=== PATIENT | female | born 1950 | race Caucasian/White ===

== ENCOUNTER → 2017-04-22 14:27 | Outpatient (CLI) | payer MEDICAID, SELFPAY ==
[2017-04-22 15:43] LABS: Absolute Lymphocyte Count 3.36 X10^3/ul (0.83-4.51); Absolute Neutrophil Count 4.3 X10^3/uL (2.0-7.7); Basophil# 0.03 X10^3/uL; Basophil% 0.3 % (0-1); Eosinophils% 4.6 % (0-5); Hematocrit 38.7 % (37-47); Hemoglobin 12.1 g/dl (12.0-15.0); Lymphocyte # 3.36 X10^3/ul (4.0); Lymphocyte % 38.8 % (19-41); Mean Corp Hgb Conc 31.3 g/gl (32-36); Mean Corpuscular Hgb 27.4 pg (27.0-32.0); Mean Corpuscular Volume 87.6 fL (81-99); Mean Platelet Vol. 11.6 fl (6.2-12.0); Monocyte# 0.54 X10^3/uL; Monocyte% 6.2 % (0-10); Neutrophil # 4.31 X10^3/uL (2.7-7.7); Neutrophil % 49.8 % (47-70); Platelet Count 232 K/mm3 (150-450); RBC Distribution Width CV 16.5 % (11.6-14.6); RBC Distribution Width SD 52.4 fl (35.1-43.9); Red Blood Count 4.42 M/mm3 (4.2-5.4); White Blood Count 8.7 K/mm3 (4.4-11.0)
[2017-04-22 15:51] LABS: POSITIVE COUNT NO; POSITIVE DIFFERENTIAL NO; POSITIVE MORPHOLOGY NO
[2017-04-22 16:06] LABS: AST(SGOT) 43 U/L (15-37); Alanine Aminotransfer ALT/SGPT 29 U/L (13-56); Albumin, Serum 3.3 g/dL (3.2-5.0); Alkaline Phosphatase 67 U/L (45-117); Anion Gap 7 (5-15); BUN 25 mg/dL (7-18); BUN/Creat Ratio 16.7 RATIO (10-20); Calcium,Total 8.5 mg/dL (8.5-10.1); Chloride 103 mmol/L (98-107); EST Glomerular Filtration Rate 37 mL/min (>60); Est Glom Filt Rate - Afr Amer 44 mL/min (>60); Globulin 3.4 g/dL (2.2-4.2); Glucose 79 mg/dL (74-106); Potassium 3.9 mmol/L (3.5-5.1); Prealbumin 16.7 mg/dL (20.0-40.0); Protein, Total 6.7 g/dL (6.4-8.2); Sodium Level 142 mmol/L (136-145)
== END ==
PROVIDERS: Family Provider Family Medicine; PCP Family Medicine; Visit Provider Family Medicine
DX: E46 Unspecified protein-calorie malnutrition (principal); E11.9 Type 2 diabetes mellitus without complications; Z51.81 Encounter for therapeutic drug level monitoring; Z79.899 Other long term (current) drug therapy
CPT/HCPCS: 36415; 80053; 83036; 84134; 85025

== ENCOUNTER → 2017-10-28 14:48 | Outpatient (CLI) | payer MEDICAID, SELFPAY ==
[2017-10-28 17:35] LABS: Anion Gap 5 (5-15); BUN 32 mg/dL (7-18); BUN/Creat Ratio 22.7 RATIO (10-20); Calcium,Total 8.4 mg/dL (8.5-10.1); Chloride 99 mmol/L (98-107); Creatinine, Serum 1.41 mg/dL (0.55-1.02); EST Glomerular Filtration Rate 39 mL/min (>60); Est Glom Filt Rate - Afr Amer 48 mL/min (>60); Glucose 136 mg/dL (74-106); Potassium 4.6 mmol/L (3.5-5.1); Sodium Level 135 mmol/L (136-145)
[2017-10-28 18:18] LABS: BNP,B-Type NATRIURETIC PEPTIDE 271.7 pg/mL (0-100)
== END ==
PROVIDERS: Family Provider Family Medicine; PCP Family Medicine; Visit Provider Family Medicine
DX: R60.9 Edema, unspecified (principal); I50.9 Heart failure, unspecified
CPT/HCPCS: 36415; 80048; 83880

== ENCOUNTER → 2017-10-28 15:03 | Outpatient (CLI) | payer MEDICAID, SELFPAY ==
--- NOTE | 2017-10-28 15:06 | VDLE_ITS ---
Reason For Study: Pain, Swelling RIGHT LEFT GSV is normal. GSV is normal. CFV is compressible, spontaneous, phasic, CFV is compressible, spontaneous, phasic, competent and demonstrates normal competent, and demonstrates normal augmentation. augmentation. FV is compressible, spontaneous, phasic, FV is compressible, spontaneous, phasic, competent and demonstrates normal competent and demonstrates normal augmentation. augmentation. POP V is compressible, spontaneous, phasic, POP V is compressible, spontaneous, phasic, competent and demonstrates normal competent and demonstrates normal augmentation. augmentation. T/P Trunk is compressible. T/P Trunk is compressible. PTV is compressible. PTV is compressible. RT PerV is compressible. LT PerV is compressible. Rt SoleusV is dilated and non compressible consistent with acute DVT. Procedure Exam performed in department. A preliminary report was called and/or faxed to Dr. Coleman Pickett. Interpretation Summary Acute deep vein thrombosis is noted in the right soleus vein. The remainder of the right lower extremity deep venous system is patent and compressible. Deep veins of the left lower extremity are patent and compressible segmentally. There is no evidence of left lower extremity deep vein thrombosis. Valvular competence appears intact within the proximal deep venous systems bilaterally. The greater saphenous veins appear bilaterally patent and compressible segmentally. Ordering Physician: Roslyn Cee Referring Physician: Roslyn Cee Performed By: Emani Lazo, CARLOS, RVT
--- NOTE | 2017-10-28 16:07 | RAD_ITS ---
STUDY: X-RAY - LEFT KNEE REASON FOR EXAM: Female, 67 years old. Left knee pain TECHNIQUE: 4 view(s) of the knee. COMPARISON: None. FINDINGS: Status post left knee arthroplasty. No evidence of acute hardware failure or loosening. No fracture or dislocation. Small amount of soft tissue swelling. No significant joint effusion. RAD/Knee 4 or More Views IMPRESSION: As above Electronically Signed: Nathan Khalil DO at 11:59 EDT Tel , Service support ,
== END ==
PROVIDERS: Family Provider Family Medicine; PCP Family Medicine; Visit Provider Family Medicine
DX: R60.9 Edema, unspecified (principal); I50.9 Heart failure, unspecified; M25.562 Pain in left knee; M79.604 Pain in right leg; M79.605 Pain in left leg; M25.662 Stiffness of left knee, not elsewhere classified
CPT/HCPCS: 36415; 73564; 80048; 83880; 93970

== ENCOUNTER 2018-02-06 10:44 | Inpatient (IN) | payer MEDICAID, SELFPAY ==
[2018-02-06] VITALS (12 sets, daily range): BP systolic 109–216; BP diastolic 75–106; PULSE 80–94; RESP 16–20; TEMP 36.2–37.7; O2SAT 88–97; BMI 31.9; BMI 32.0; BMI 38.1
--- NOTE | 2018-02-06 11:09 | CT_ITS ---
STUDY: CT FACIAL BONES WITH CONTRAST REASON FOR EXAM: Female, 67 years old. Facial swelling RADIATION DOSAGE (If Supplied By Facility): CTDIvol = ( 29.38 ) mGy, DLP = ( 694.38 ) mGycm TECHNIQUE: The patient was scanned in a multi detector CT scanner. Transaxial imaging was performed following the intravenous administration of 75 ml of Isovue 370 contrast material. Sagittal and coronal images were reconstructed. Individualized dose optimization techniques were used for this CT. COMPARISON: None. FINDINGS: There is inflammatory induration of the facial superficial soft tissues bilaterally, lateral neck greater on the right, submandibular bilaterally, anterior neck, extending downward in the subcutaneous fat overlying the thoracic inlet. There is thickening of the overlying skin. There is thickening of the underlying platysma. The appearance suggest the presence of either diffuse edema, or cellulitis. Normal appearance of the thyroid, submandibular and parotid glands. Soft tissues deep to the platysma exhibit no significant inflammatory induration. There are multiple shotty lymph nodes of the cervical chains, bilateral supraclavicular, submandibular, not pathologically enlarged but somewhat conspicuous in number and possibly acute reactive lymphadenopathy. Pharyngeal and laryngeal soft tissues are unremarkable. Atherosclerosis of the carotid bulbs and bifurcations without stenosis. Patent vertebral arteries. Paranasal sinuses, mastoid air cells and middle ear cavities are clear. Evaluated portions of calvarium appear normal. There is multilevel cervical spondylosis with uncovertebral joint hypertrophy contributing to foraminal narrowing at C3-C4. 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 Acutely, patent features of the cranial vasculature. CT/Sinus/Facial Bone WITH Contras IMPRESSION: Superficial soft tissue edema/induration involving the face, neck, and subcutaneous fat of the upper chest, associated with multiple small reactive appearing lymph nodes of the cervical chains and supraclavicular, in a pattern favoring a generalized cellulitis. The process extends upward to the periorbital soft tissues without intraorbital extension. There is no evidence of abscess. No focal nidus of infection is identified. Electronically Signed: Clyde Davies MD at 14:49 EST Tel , Service support ,
[2018-02-06 11:41] LABS: Absolute Lymphocyte Count 1.79 X10^3/ul (0.83-4.51); Absolute Neutrophil Count 7.3 X10^3/uL (2.0-7.7); Basophil# 0.02 X10^3/uL; Basophil% 0.2 % (0-1); Eosinophil# 0.25 X10^3/uL; Eosinophils% 2.4 % (0-5); Hematocrit 29.3 % (37-47); Hemoglobin 8.9 g/dl (12.0-15.0); Lymphocyte # 1.79 X10^3/ul (4.0); Lymphocyte % 17.5 % (19-41); Mean Corp Hgb Conc 30.4 g/gl (32-36); Mean Corpuscular Hgb 23.1 pg (27.0-32.0); Mean Corpuscular Volume 76.1 fL (81-99); Mean Platelet Vol. 9.5 fl (6.2-12.0); Monocyte# 0.83 X10^3/uL; Monocyte% 8.1 % (0-10); Neutrophil # 7.31 X10^3/uL (2.7-7.7); Neutrophil % 71.5 % (47-70); Platelet Count 262 K/mm3 (150-450); RBC Distribution Width CV 16.6 % (11.6-14.6); Red Blood Count 3.85 M/mm3 (4.2-5.4); White Blood Count 10.2 K/mm3 (4.4-11.0)
[2018-02-06 11:42] LABS: Differential Indicated SCAN CRITERIA MET; POSITIVE COUNT NO; POSITIVE DIFFERENTIAL NO; POSITIVE MORPHOLOGY YES
[2018-02-06] MEDS: MethylPREDNISolone 125 MG/2 ML Vial IV (11:42)
[2018-02-06] MEDS: DiphenhydrAMINE 50 MG/ML Syringe 25 MG IV (11:42)
[2018-02-06 11:51] LABS: International Normalized Ratio 2.2; Prothrombin Time (Protime)PT. 24.3 SECONDS (11.7-14.9)
[2018-02-06 11:52] LABS: Partial Thromboplast Time 46.8 Seconds (24.1-36.2)
[2018-02-06 11:54] LABS: BUN 34 mg/dL (7-18); Creatinine, Serum 1.29 mg/dL (0.55-1.02); EST Glomerular Filtration Rate 43 mL/min (>60); Estimated Creatinine Clearance 31.06 ml/min; Glucose 116 mg/dL (74-106)
[2018-02-06 11:55] LABS: ALB/GLOB Ratio 0.9 RATIO (0.9-2.4); AST(SGOT) 25 U/L (15-37); Alanine Aminotransfer ALT/SGPT 25 U/L (13-56); Albumin, Serum 3.2 g/dL (3.2-5.0); Alkaline Phosphatase 64 U/L (45-117); Anion Gap 7 (5-15); BUN/Creat Ratio 26.4 RATIO (10-20); Calcium,Total 8.3 mg/dL (8.5-10.1); Chloride 101 mmol/L (98-107); Est Glom Filt Rate - Afr Amer 53 mL/min (>60); Globulin 3.4 g/dL (2.2-4.2); Protein, Total 6.6 g/dL (6.4-8.2); Sodium Level 137 mmol/L (136-145)
--- NOTE | 2018-02-06 15:10 | ED.DCSUM_ITS ---
- ER Visit Summary Date of Service: 02/06/18 Chief Complaint: Facial swelling History of Present Illness: The patient is a 67 F with facial swelling. It started about a week ago when she got bit in her right ear. She had facial swelling since then. Over the last couple days, she has had redness and warmth. No fevers. No trouble breathing, talking, or swallowing. No history of anaphylaxis. Physical Examination: Afebrile and vital signs unremarkable except for a blood pressure 216/106. Afebrile. Marked facial edema and erythema, worse on the right side. Eyes are nearly swollen shut. No focal fluctuance. No definite lesion or skin break. HEENT exam otherwise unremarkable. Airway intact. Heart regular. Lungs clear. Test Results: Hemoglobin 8.9, BUN 34, creatinine 1.29, INR 2.2. Cultures pending. CT showed soft tissue edema concerning for cellulitis. No focal abscess. Emergency Department Course and Treatment: Patient was treated with Benadryl and Solu-Medrol. INR is elevated. She is on aspirin and Xarelto. CT showed findings consistent with cellulitis. No focal abscess. She was treated with clindamycin and discussed with the hospitalist for admission. Treatment Plan: As above Disposition: Admission Impression: Facial cellulitis This note was generated with [employer] dictation software. It may contain incorrect words, spelling, and punctuation that were not noted in review of the chart prior to signing ED Disposition - Plan for ED Patient: Chief Complaint: Edema Referrals: Roslyn Cee DO [Primary Care Provider] -
--- NOTE | 2018-02-06 15:11 | NURSING ---
MED SURG ASHELFAH FACIAL CELLULITIS
--- NOTE | 2018-02-06 15:34 | HP.PCM_ITS ---
Problem List (1) JAIME (obstructive sleep apnea) Status: Chronic (2) Diabetes mellitus type 2 in obese Status: Chronic (3) Chronic renal failure, stage 3 (moderate) Status: Chronic (4) HLD (hyperlipidemia) Status: Chronic (5) HTN (hypertension) Status: Chronic (6) Hypothyroidism Status: Chronic (7) COPD (chronic obstructive pulmonary disease) Status: Chronic Qualifiers: (8) Gastric bypass status for obesity Status: Chronic History of Present Illness Date of Admission: 02/06/18 Chief Complaint: Facial swelling. The patient is a 67 year old F with past medical history as mentioned above presented to the emergency department because of swelling and redness of the face that started around 1 week ago. Patient stated that she had some insect bite in the right earlobe and shortly after, she started having swelling and redness of the face, first started around her right side of her face, progressed to around both eyes as well as in the left side and chin area, associated with significant redness and erythema and without aggravating or relieving factors. She mentioned that yesterday, the swelling and erythema was worse than today and her eyes were almost closed. She denied fever or chills. She denied difficulty breathing or difficulty swallowing. She denies sore throat. In the emergency department, she was afebrile, blood pressure was stable, pulse ox was 97% on 2 L. Her routine blood work was remarkable for hemoglobin of 8.9 g/dL, BUN of 34 and creatinine of 1.29. Her LFT was normal. CT scan of the facial bones and sinuses revealed superficial soft tissue edema of the face, neck and subcutaneous fat of the upper chest with multiple small reactive lymph nodes, no abscess. She is being admitted for acute probably bacterial facial cellulitis for treatment. Past Medical History Past Medical History (Chronic Problems): Chronic Problems JAIME (obstructive sleep apnea) (Chronic) Esophageal stricture (Chronic) Diabetes mellitus type 2 in obese (Chronic) Diverticulosis (Chronic) Chronic renal failure, stage 3 (moderate) (Chronic) HLD (hyperlipidemia) (Chronic) HTN (hypertension) (Chronic) Morbid obesity (Chronic) Nicotine dependence (Chronic) History of vertebral compression fracture (Chronic) L1 and L2, April 2016 Hypothyroidism (Chronic) COPD (chronic obstructive pulmonary disease) (Chronic) Lumbar canal stenosis (Chronic) Gastric bypass status for obesity (Chronic) Allergies morphine Allergy (Verified 02/06/18 10:47) Anaphylaxis oxycodone Allergy (Verified 02/06/18 10:47) Swelling oxycodone HCl [From OxyContin] Allergy (Verified 02/06/18 10:47) Swelling temazepam [From Restoril] Allergy (Verified 02/06/18 10:47) Anaphylaxis adhesive tape Adverse Reaction (Verified 02/06/18 10:47) Other SKIN PEELS OFF WITH USE Home Medications: Ambulatory Orders Medication Instructions Recorded Albuterol Inhaler [Ventolin Hfa] 1 puff INHALATION Q4H PRN PRN 07/08/16 Atorvastatin Calcium 40 mg PO BID 07/08/16 Furosemide 40 mg PO TID 07/08/16 Lisinopril [Zestril] 10 mg PO DAILY 07/08/16 Carvedilol [Coreg] 3.125 mg PO BID 07/12/16 Fluticasone Propionate [24 Hour 1 - 2 sprays NS DAILY PRN 07/12/16 Allergy Relief] Insulin Glargine,Hum.rec.anlog 13 unit SQ QHS 07/12/16 [Basaglar Kwikpen U-100] Insulin Lispro [Humalog KwikPen] See Protocol SQ DAILY 07/12/16 Ipratropium [Atrovent Inhaler] 1 puff INHALATION 4X/DAY PRN 07/12/16 Ondansetron [Zofran Odt] 4 mg PO 4X/DAY PRN PRN 07/12/16 Ferrous Sulfate 325 mg PO DAILY #0 07/14/16 Magnesium Oxide [Mag-Ox 400] 400 mg PO DAILY #30 tablet 07/14/16 ALPRAZolam [Xanax] 0.5 mg PO BID 02/06/18 Albuterol Aerosols [Ventolin 2.5 mg INHALATION Q6H PRN PRN 02/06/18 Aerosols] Aspirin E.C. [Ecotrin] 81 mg PO DAILY@0800 02/06/18 Cholecalciferol (Vitamin D3) 5,000 unit PO DAILY 02/06/18 [Vitamin D3] Clindamycin Phosphate 1 applicatio TP PRN PRN 02/06/18 Erythromycin Base [Erythromycin] 1 applic EACH EYE QHS 02/06/18 Eye Relief 1 drop EACH EYE DAILY 02/06/18 Fluorometholone 1 drop EACH EYE BID 02/06/18 Fluticasone/Salmeterol [Advair 1 puff INHALATION BID 02/06/18 250-50 Diskus] Hydrocodone/Acetaminophen 1 tab PO Q6H PRN PRN 02/06/18 [Hydrocodon-Acetaminophn 10-325] Ibuprofen 800 mg PO BID 02/06/18 Levothyroxine Sodium [Synthroid] 75 mcg PO DAILY 02/06/18 Metformin HCl 500 mg PO BID 02/06/18 Omeprazole 40 mg PO BID 02/06/18 Oxybutynin Chloride [Ditropan Xl] 10 mg PO DAILY 02/06/18 Oxybutynin Chloride [Ditropan Xl] 20 mg PO DAILY 02/06/18 Rivaroxaban [Xarelto] 20 mg PO DAILY 02/06/18 traMADol [Ultram] 50 mg PO TID 02/06/18 Surgical History: total knee arthroplasty, - - left knee replaced, right ankle surgery.gastric bypass Psychiatric History: No pertinent psych hx 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 history Lives: Spouse/ Significant Other Smoking Status: Current every day smoker Tobacco Use: Cigarettes Alcohol: None Drugs: None - *Family History Maternal History Items: Diabetes Paternal History Items: Hypertension Review of Systems Constitutional: Denies: Anorexia, Chills, Fever, Weakness Eyes: Denies: Blurred vision, Double vision, Drainage, Redness HEENT: Denies: Difficulty Hearing, Difficulty Swallowing, Ear Pain, Eye Pain, Nasal bleeding, Nasal Congestion, Sore Throat Cardiovascular: Denies: Chest Pain, Chest Pressure, Chest Tightness, Heaviness, Light Headedness, Palpitations, Syncope Respiratory: Denies: Cough, Pleuritic Pain, Shortness of Breath, Sputum production, Wheezing Gastrointestinal: Denies: Abdominal Pain, Constipation, Diarrhea, Nausea, Vomiting Genitourinary: Denies: Dysuria, Frequency, Hematuria Musculoskeletal: Denies: Arm Pain, Back Pain, Foot Pain Skin: Denies: Dryness, Rash Neurological: Denies: Balance problems, Double vision, Change in Speech, Slurred speech, Confusion, Focal weakness, Headaches Psychiatric: Reports: Anxiety. Denies: Depression Endocrine: Denies: Change in Body Habitus, Polydipsia VTE Information - Inpt Only VTE Present on Admission: No VTE Mechan Device Prophylaxis: None VTE Pharm Prophylaxis ordered?: No - Physical Exam General: Alert, Oriented x3, Cooperative, No apparent distress HEENT: Atraumatic, PERRLA, EOMI, Normocephalic, - - Facial swelling and erythema involving the whole face, more marked on the right cheek, around both eyes as well as right earlobe. Erythema and swelling is less prominent on the left cheek, left periorbital area and neck. Oral: Moist Mucosa, No Gingival or Mucosal Lesions/ Ulcerations Neck: Supple, No JVD, Negative Carotid Bruits, Trachea Midline, Thyroid Normal Size and Texture Lungs: Clear to auscultation, No rhonchi, No wheeze, No rales, Diminished Cardiovascular: Regular rate, Regular Rhythm, Normal S1, Normal S2, PMI Normal Abdomen: Bowel Sounds Present, Soft, Non Tender, Non-Distended, No Hepato- splenomegaly, Obese Extremities: No clubbing, No cyanosis, Edema - Trace edema. Skin: No breakdown, Rash Present Lymphatic: No Cervical, Supraclavicular, or Inguinal Adenopathy Neurological: Cranial nerves II-XII grossly intact, Motor Exam 5/5 strength throughout Psych/Mental Status: Normal Affect, Appropriate, Alert and oriented to time, place, person, mood and affect Vital Signs Temp Pulse Resp BP Pulse Ox 98.2 F 87 20 H 165/88 H 94 02/06/18 15:00 02/06/18 15:00 02/06/18 15:00 02/06/18 15:00 02/06/18 15:00 Oxygen Flow Rate (L/min) 2 Oxygen Delivery Method Nasal Cannula Weight: 172 lb Body Mass Index (BMI) 31.9 Laboratory Tests Past 24 Hrs 02/06/18 02/06/18 02/06/18 11:30 11:30 11:30 WBC 10.2 RBC 3.85 L Hgb 8.9 L Hct 29.3 L MCV 76.1 L MCH 23.1 L MCHC 30.4 L RDW 16.6 H RDW Differential 46.0 H Plt Count 262 MPV 9.5 Immature Gran % (Auto) 0.300 Neut % (Auto) 71.5 H Lymph % (Auto) 17.5 L [place] % (Auto) 8.1 Eos % (Auto) 2.4 Baso % (Auto) 0.2 Absolute Neuts (auto) 7.3 Absolute Lymphs (auto) 1.79 Total Counted Not Reportable PT 24.3 H INR 2.2 APTT 46.8 H Sodium 137 Potassium 4.0 Chloride 101 Carbon Dioxide 29.0 Anion Gap 7 BUN 34 H Creatinine 1.29 H Estim Creat Clear Calc 31.06 Est GFR (MDRD) Af Amer 53 L Est GFR (MDRD) Non-Af 43 L BUN/Creatinine Ratio 26.4 H Glucose 116 H Calcium 8.3 L Total Bilirubin 0.40 AST 25 ALT 25 Alkaline Phosphatase 64 Total Protein 6.6 Albumin 3.2 Globulin 3.4 Albumin/Globulin Ratio 0.9 Clinical Impression(s) from Imaging Studies Facial/Sinus 02/06/18 11:09 IMPRESSION: Superficial soft tissue edema/induration involving the face, neck, and subcutaneous fat of the upper chest, associated with multiple small reactive appearing lymph nodes of the cervical chains and supraclavicular, in a pattern favoring a generalized cellulitis. The process extends upward to the periorbital soft tissues without intraorbital extension. There is no evidence of abscess. No focal nidus of infection is identified. Electronically Signed: Clyde Davies MD at 14:49 EST Tel , Service support , Assessment/Plan This is a 67 years old female patient presented to the emergency because of facial swelling and erythema, found to have acute facial cellulitis and she is being admitted for treatment. Also, she was found to have acute on chronic anemia. #1 acute probably bacterial facial cellulitis: Face is swollen, erythematous, no open wounds or drainage. CT scan sinuses and facial bones reviewed. She is afebrile, no leukocytosis. No evidence of sepsis or sepsis. Plan: Admit to [facility] floor, blood culture, IV clindamycin, MRSA nasal swab, Tylenol as needed, Zofran as needed, repeat CBC and BMP tomorrow morning. #2 acute on chronic anemia: Her baseline hemoglobin has been around 11 g/dL. Most recently, it was 12.1 g/dL. Admission hemoglobin is 8.9 g/dL, it is microcytic anemia. Patient denied any bleeding from body orifices. Her INR is 2.2, unclear etiology. Patient has been on Xarelto for DVT. Plan: Stool for occult blood, serum iron, ferritin, TIBC, transferrin, continue iron supplement. #3 recent diagnosis of acute DVT of the right soleus vein: She had venous Doppler on October 28, 2017 that revealed acute DVT of the right soleus vein. She has been on Xarelto since then. Plan to continue Xarelto. #4 stage III chronic kidney disease: Baseline creatinine has been around 1.3-1.6 mg/dL. Admission creatinine is 1.29, stable at baseline. #5 type 2 diabetes mellitus: ADA diet, Accu-Cheks, insulin sliding scale, continue metformin and home doses of glargine insulin. #6 COPD: DuoNeb every 6 hours, albuterol as needed, incentive spirometer. #7 hypertension: Blood pressure stable, continue Coreg, Lasix and lisinopril. #8 DVT prophylaxis: Continue Xarelto. Other chronic medical problems: Stable, continue home medications. #1 hypothyroidism. #2 hyperlipidemia. #3 lumbar canal stenosis. #4 obstructive sleep apnea. This note was generated with [employer] dictation software. It may contain incorrect words, spelling, and punctuation that were not noted in checking the note before signing. Code Visit Inpatient E&M: 97022 Init Hosp L2
[2018-02-06] MEDS: Acetaminophen 325 MG Tablet 650 MG PO (18:15)
[2018-02-06] MEDS: Glucerna Shake 120 ML LIQUID PO ×2 (18:15→21:57)
[2018-02-06 18:16] LABS: Bedside Glucose 192 mg/dL (70-110)
[2018-02-06] MEDS: Insulin Lispro 100 UNIT/ML INSULN.PEN SC ×2 (18:16→21:47)
[2018-02-06 18:58] LABS: Ferritin 15 ng/mL (8-252); Iron 10 ug/dL (50-170); Iron Binding Capacity,Total 308 ug/dL (250-450); PERCENT IRON SATURATION 3.2 % (15.0-55.0)
[2018-02-06] MEDS: Ipratropium/Albuterol Sulfate 3 ML AMPUL.NEB INHALATION (19:39)
[2018-02-06] MEDS: Carvedilol 3.125 MG TABLET PO (21:50)
[2018-02-06] MEDS: Furosemide 40 MG Tablet PO (21:50)
[2018-02-06] MEDS: Pantoprazole Sodium 40 MG Tablet PO (21:51)
[2018-02-06] MEDS: Atorvastatin Calcium 40 MG Tablet PO (21:51)
[2018-02-06] MEDS: traMADol 50 MG Tablet PO (21:54)
[2018-02-06] MEDS: ALPRAZolam 0.5 MG Tablet PO (21:55)
[2018-02-06 22:26] LABS: Bedside Glucose 239 mg/dL (70-110)
[2018-02-07] VITALS (16 sets, daily range): BP systolic 128–161; BP diastolic 65–92; PULSE 75–96; RESP 18–22; TEMP 36.7–36.9; O2SAT 84–97
[2018-02-07] MEDS: HYDROcodone Bitartrate/Apap 5/325 Tablet PO ×3 (04:03→18:55)
[2018-02-07] MEDS: traMADol 50 MG Tablet PO ×3 (05:38→21:47)
[2018-02-07] MEDS: Levothyroxine 75 MCG Tablet PO (05:38)
[2018-02-07] MEDS: Furosemide 40 MG Tablet PO ×3 (05:38→21:47)
[2018-02-07 05:59] LABS: Absolute Lymphocyte Count 1.35 X10^3/ul (0.83-4.51); Absolute Neutrophil Count 8.4 X10^3/uL (2.0-7.7); Basophil# 0.02 X10^3/uL; Basophil% 0.2 % (0-1); Hematocrit 29.9 % (37-47); Hemoglobin 9.2 g/dl (12.0-15.0); Lymphocyte # 1.35 X10^3/ul (4.0); Mean Corp Hgb Conc 30.8 g/gl (32-36); Mean Corpuscular Volume 74.8 fL (81-99); Mean Platelet Vol. 11.1 fl (6.2-12.0); Monocyte# 0.59 X10^3/uL; Monocyte% 5.7 % (0-10); Neutrophil # 8.42 X10^3/uL (2.7-7.7); Neutrophil % 80.8 % (47-70); Platelet Count 303 K/mm3 (150-450); RBC Distribution Width CV 16.8 % (11.6-14.6); RBC Distribution Width SD 44.1 fl (35.1-43.9); White Blood Count 10.4 K/mm3 (4.4-11.0)
[2018-02-07 06:08] LABS: Anion Gap 8 (5-15); BUN 29 mg/dL (7-18); BUN/Creat Ratio 25.2 RATIO (10-20); Calcium,Total 8.4 mg/dL (8.5-10.1); Chloride 104 mmol/L (98-107); Creatinine, Serum 1.15 mg/dL (0.55-1.02); EST Glomerular Filtration Rate 50 mL/min (>60); Est Glom Filt Rate - Afr Amer 60 mL/min (>60); Estimated Creatinine Clearance 34.84 ml/min; Glucose 183 mg/dL (74-106); Potassium 4.2 mmol/L (3.5-5.1); Sodium Level 141 mmol/L (136-145)
[2018-02-07 06:11] LABS: Differential Indicated SCAN CRITERIA MET; POSITIVE COUNT NO; POSITIVE DIFFERENTIAL NO; POSITIVE MORPHOLOGY YES
[2018-02-07 06:36] LABS: Differential Comment SCAN
[2018-02-07 06:37] LABS: Anisocytosis 1+; Hypochromasia 1+; Microcytosis 1+
[2018-02-07] MEDS: Ipratropium/Albuterol Sulfate 3 ML AMPUL.NEB INHALATION ×3 (06:52→19:02)
[2018-02-07] MEDS: Insulin Lispro 100 UNIT/ML INSULN.PEN SC ×4 (07:00→21:46)
[2018-02-07 07:10] LABS: Bedside Glucose 179 mg/dL (70-110)
[2018-02-07] MEDS: Tolterodine Tartrate 4 MG CAP.SA PO (08:37)
[2018-02-07] MEDS: Pantoprazole Sodium 40 MG Tablet PO ×2 (08:37→21:49)
[2018-02-07] MEDS: Lisinopril 10 MG Tablet PO (08:37)
[2018-02-07] MEDS: Aspirin E.C. 81 MG Tablet PO (08:37)
[2018-02-07] MEDS: Carvedilol 3.125 MG TABLET PO ×2 (08:37→21:49)
[2018-02-07] MEDS: Ferrous Sulfate 325 MG Tablet PO (08:37)
[2018-02-07] MEDS: Atorvastatin Calcium 40 MG Tablet PO ×2 (08:37→21:49)
[2018-02-07] MEDS: Glucerna Shake 120 ML LIQUID PO ×2 (08:38→12:24)
[2018-02-07] MEDS: Magnesium Oxide 400 MG Tablet PO (08:38)
[2018-02-07] MEDS: FLUOROMETHOLONE 1 DROP BOTTLE 1 DRP EACHEYE ×2 (08:41→21:51)
[2018-02-07] MEDS: ALPRAZolam 0.5 MG Tablet PO ×2 (10:28→21:47)
[2018-02-07] MEDS: Nystatin Powder 15gm Bottle 1 APPLIC TOPICAL ×2 (10:29→21:49)
[2018-02-07 11:35] LABS: Bedside Glucose 170 mg/dL (70-110)
[2018-02-07] MEDS: DiphenhydrAMINE 25 MG Capsule PO (12:21)
--- NOTE | 2018-02-07 13:40 | CASEMGMT ---
[facility] Face to Face with patient for initial transition planning/care coordination assessment. RN JESUSITA introduced self and role at [facility]. Patient lying in bed, alert and oriented. Patient willing to participate in assessment and is able to answer all questions appropriately. Care providers, pharmacy, and demographics verified. Patient wishes to discharge home and will follow up with adult protective caseworker at [facility]. Patient states she has no further needs or concerns at this time. CM to follow for discharge planning needs that may arise. PCP: Coleman Specialists: None Preferred Pharmacy: [facility] Insurance: [facility] Prescription Benefit: [facility] Living Will/HPOA: Yes mother Madison Montesinos LNOK: Mother, ex Living Arrangements: Patient lives in 2 story house with ex who stays on 2nd floor. Patient stays on 1st floor. Transportation: Mother, ex DME/HHC: Patient states she has everything setup at home. Walker, scooter, cane, raised toilet, shower chair, hospital bed, medical alert. States she has HHC through [facility] when she needs it and patient will call [facility] when she discharges. Denied further needs. Disposition Plan: Patient to discharge home with family support and follow-up plans in place. Marcy AN, RN, CM
[2018-02-07] MEDS: predniSONE 20 MG Tablet 40 MG PO (14:13)
--- NOTE | 2018-02-07 15:03 | PN_ITS ---
<Sherman Bee - Last Filed: 02/07/18 14:57> Subjective: Pt reports ongoing pain and swelling of her face R>L. She does not feel that it has improved. It began 6 days ago when, what she thinks - but is not sure, a horsefly flew out of a drawer and stung her right ear. She had swelling and pain that day. She has been on some topicals with no improvement. She does have allergies to bug bites - she is not sure what bugs but she carries an epi pen for it. She did not use it when this happened. She has COPD and is chronically on O2. No Wheezing or SOB currently. No new cough. She has a hard time opening her eyes due to the swelling but the vision is not blurred. No drainage. - Physical Exam General: Alert, Oriented x3, Cooperative HEENT: Atraumatic, PERRLA, EOMI, Normocephalic, - - Swelling and erythema of both sides around the eyes, worse on the right. Somewhat warm to the touch, no open areas or drainage. She cannot open her eyes all the way due to the swelling. Neck: Supple, No JVD, Negative Carotid Bruits Lungs: Clear to auscultation, Normal air movement Cardiovascular: Regular rate, No murmurs Abdomen: Bowel Sounds Present, Soft, Non Tender Extremities: No edema, Capillary Refill Less than 3 Seconds Skin: No rashes, No breakdown Musculoskeletal: No Tenderness to Palpation of Joints or Extremities Neurological: Cranial nerves II-XII grossly intact Psych/Mental Status: Normal Affect, Appropriate, Alert and oriented to time, place, person, mood and affect Vital Signs Temp Pulse Resp BP Pulse Ox 98.2 F 81 18 128/92 H 97 02/07/18 13:46 02/07/18 13:46 02/07/18 13:46 02/07/18 13:46 02/07/18 13:46 Oxygen Flow Rate (L/min) 3 Oxygen Delivery Method Nasal Cannula Weight: 205 lb 4.006 oz Body Mass Index (BMI) 38.1 Intake and Output for Last 24 Hours 02/05/18 02/06/18 02/07/18 23:59 23:59 23:59 Intake Total 893 / 893 Balance 893 / 893 Laboratory Tests Past 24 Hrs 02/06/18 02/06/18 02/07/18 11:30 11:30 05:14 WBC RBC Hgb Hct MCV MCH MCHC RDW RDW Differential Plt Count MPV Immature Gran % (Auto) Neut % (Auto) Lymph % (Auto) [place] % (Auto) Eos % (Auto) Baso % (Auto) Absolute Neuts (auto) Absolute Lymphs (auto) Total Counted Differential Comment Hypochromasia Anisocytosis Microcytosis Sodium 141 Potassium 4.2 Chloride 104 Carbon Dioxide 29.0 Anion Gap 8 BUN 29 H Creatinine 1.15 H Estim Creat Clear Calc 34.84 Est GFR (MDRD) Af Amer 60 Est GFR (MDRD) Non-Af 50 L BUN/Creatinine Ratio 25.2 H Glucose 183 H Calcium 8.4 L Iron 10 L TIBC 308 Iron Saturation 3.2 L Transferrin Pending Ferritin 15 02/07/18 05:14 WBC 10.4 RBC 4.00 L Hgb 9.2 L Hct 29.9 L MCV 74.8 L MCH 23.0 L MCHC 30.8 L RDW 16.8 H RDW Differential 44.1 H Plt Count 303 MPV 11.1 Immature Gran % (Auto) 0.300 Neut % (Auto) 80.8 H Lymph % (Auto) 13.0 L [place] % (Auto) 5.7 Eos % (Auto) 0.0 Baso % (Auto) 0.2 Absolute Neuts (auto) 8.4 H Absolute Lymphs (auto) 1.35 Total Counted Not Reportable Differential Comment SCAN Hypochromasia 1+ Anisocytosis 1+ Microcytosis 1+ Sodium Potassium Chloride Carbon Dioxide Anion Gap BUN Creatinine Estim Creat Clear Calc Est GFR (MDRD) Af Amer Est GFR (MDRD) Non-Af BUN/Creatinine Ratio Glucose Calcium Iron TIBC Iron Saturation Transferrin Ferritin POC Glucose 02/07/18 02/07/18 02/06/18 11:26 06:59 21:39 POC Glucose 170 H 179 H 239 H 02/06/18 18:11 POC Glucose 192 H Medical Necessity - Tobacco Use Smoking Status: Current every day smoker Tobacco Use: Cigarettes Assessment/Plan 1. Facial swelling - cellulitis vs allergic rxn. Added steroids and benadryl. Continue clinda. If no improvement change abx. No drainage. Started with insect bite and she carries an epi pen for insect bites - however she is not sure what exactly she is allergic to. 2. Acute on chronic anemia - iron deficient. Improved. Continue PO iron. 3. Recent hx of DVT - xarelto 4. Stage III CKD - improved. 5. T2DM - continue current therapy. Will fluctuate with steroids. 6. COPD - stable. no SOB. Clear lungs. DVT ppx: xarelto. DC planning: monitor for improvement. This patient was seen by Sherman Bee PA-C under the supervision of Doctor Anette. <Raad Cheema F - Last Filed: 02/07/18 16:16> - Physical Exam Vital Signs Temp Pulse Resp BP Pulse Ox 98.2 F 81 18 128/92 H 97 02/07/18 13:46 02/07/18 13:46 02/07/18 13:46 02/07/18 13:46 02/07/18 13:46 Oxygen Flow Rate (L/min) 3 Oxygen Delivery Method Nasal Cannula Weight: 205 lb 4.006 oz Body Mass Index (BMI) 38.1 Intake and Output for Last 24 Hours 02/05/18 02/06/18 02/07/18 23:59 23:59 23:59 Intake Total 893 / 893 Balance 893 / 893 Laboratory Tests Past 24 Hrs 02/06/18 02/06/18 02/07/18 11:30 11:30 05:14 WBC RBC Hgb Hct MCV MCH MCHC RDW RDW Differential Plt Count MPV Immature Gran % (Auto) Neut % (Auto) Lymph % (Auto) [place] % (Auto) Eos % (Auto) Baso % (Auto) Absolute Neuts (auto) Absolute Lymphs (auto) Total Counted Differential Comment Hypochromasia Anisocytosis Microcytosis Sodium 141 Potassium 4.2 Chloride 104 Carbon Dioxide 29.0 Anion Gap 8 BUN 29 H Creatinine 1.15 H Estim Creat Clear Calc 34.84 Est GFR (MDRD) Af Amer 60 Est GFR (MDRD) Non-Af 50 L BUN/Creatinine Ratio 25.2 H Glucose 183 H Calcium 8.4 L Iron 10 L TIBC 308 Iron Saturation 3.2 L Transferrin Pending Ferritin 15 02/07/18 05:14 WBC 10.4 RBC 4.00 L Hgb 9.2 L Hct 29.9 L MCV 74.8 L MCH 23.0 L MCHC 30.8 L RDW 16.8 H RDW Differential 44.1 H Plt Count 303 MPV 11.1 Immature Gran % (Auto) 0.300 Neut % (Auto) 80.8 H Lymph % (Auto) 13.0 L [place] % (Auto) 5.7 Eos % (Auto) 0.0 Baso % (Auto) 0.2 Absolute Neuts (auto) 8.4 H Absolute Lymphs (auto) 1.35 Total Counted Not Reportable Differential Comment SCAN Hypochromasia 1+ Anisocytosis 1+ Microcytosis 1+ Sodium Potassium Chloride Carbon Dioxide Anion Gap BUN Creatinine Estim Creat Clear Calc Est GFR (MDRD) Af Amer Est GFR (MDRD) Non-Af BUN/Creatinine Ratio Glucose Calcium Iron TIBC Iron Saturation Transferrin Ferritin POC Glucose 02/07/18 02/07/18 02/06/18 11:26 06:59 21:39 POC Glucose 170 H 179 H 239 H 02/06/18 18:11 POC Glucose 192 H Assessment/Plan Addendum: Dr. Cheema I personally examined the patient and reviewed the chart. I agree with the above. 67-year-old female with a one-week history of a reaction to a bite on the right side of her face. She presented with redness and swelling. She is afebrile and does not have a leukocytosis. Per history she has been on a couple different antibiotics as an outpatient is currently on IV clindamycin. Culture so far negative. CT scan was unremarkable for anything other than subcutaneous edema. Will add steroids and Benadryl in case this is also an allergic reaction given the fact that she states that she carries an EpiPen for an allergy see she has 2 insect so she is not sure which kind. Code Visit Inpatient E&M: 60628 Subs Hosp L2
[2018-02-07] MEDS: Rivaroxaban 20 MG Tablet PO (16:46)
[2018-02-07 16:56] LABS: Bedside Glucose 230 mg/dL (70-110)
[2018-02-07 22:01] LABS: Bedside Glucose 270 mg/dL (70-110)
[2018-02-08 03:15] VITALS: BP 108/81; PULSE 74; RESP 18; TEMP 36.8; O2SAT 94
[2018-02-08] MEDS: HYDROcodone Bitartrate/Apap 5/325 Tablet PO (03:32)
[2018-02-08 04:00] VITALS: PULSE 81
[2018-02-08] MEDS: Furosemide 40 MG Tablet PO (06:36)
[2018-02-08] MEDS: Levothyroxine 75 MCG Tablet PO (06:36)
[2018-02-08] MEDS: traMADol 50 MG Tablet PO (06:36)
[2018-02-08 06:39] LABS: Absolute Lymphocyte Count 1.36 X10^3/ul (0.83-4.51); Absolute Neutrophil Count 8.1 X10^3/uL (2.0-7.7); Basophil# 0.01 X10^3/uL; Basophil% 0.1 % (0-1); Hematocrit 25.9 % (37-47); Lymphocyte # 1.36 X10^3/ul (4.0); Lymphocyte % 13.6 % (19-41); Mean Corp Hgb Conc 30.9 g/gl (32-36); Mean Corpuscular Volume 74.4 fL (81-99); Mean Platelet Vol. 10.3 fl (6.2-12.0); Monocyte# 0.45 X10^3/uL; Monocyte% 4.5 % (0-10); Neutrophil # 8.14 X10^3/uL (2.7-7.7); Neutrophil % 81.4 % (47-70); Platelet Count 286 K/mm3 (150-450); Red Blood Count 3.48 M/mm3 (4.2-5.4)
[2018-02-08] MEDS: Insulin Lispro 100 UNIT/ML INSULN.PEN SC ×2 (06:41→11:10)
[2018-02-08 06:45] LABS: Differential Indicated SCAN CRITERIA MET; POSITIVE COUNT NO; POSITIVE DIFFERENTIAL NO; POSITIVE MORPHOLOGY YES
[2018-02-08 06:51] LABS: Bedside Glucose 187 mg/dL (70-110)
[2018-02-08 06:57] LABS: Anion Gap 5 (5-15); BUN 31 mg/dL (7-18); BUN/Creat Ratio 23.5 RATIO (10-20); Chloride 100 mmol/L (98-107); Creatinine, Serum 1.32 mg/dL (0.55-1.02); EST Glomerular Filtration Rate 42 mL/min (>60); Est Glom Filt Rate - Afr Amer 51 mL/min (>60); Estimated Creatinine Clearance 30.35 ml/min; Glucose 191 mg/dL (74-106); Potassium 4.5 mmol/L (3.5-5.1); Sodium Level 137 mmol/L (136-145)
[2018-02-08 07:23] LABS: Anisocytosis 2+; Differential Comment SCANNED; Hypochromasia 2+; Microcytosis 2+
[2018-02-08 07:31] VITALS: BP 158/93; PULSE 76; RESP 16; TEMP 36.9; O2SAT 93
[2018-02-08] MEDS: Aspirin E.C. 81 MG Tablet PO (07:44)
[2018-02-08] MEDS: predniSONE 20 MG Tablet 40 MG PO (07:45)
[2018-02-08] MEDS: Ferrous Sulfate 325 MG Tablet PO (07:45)
[2018-02-08 07:51] VITALS: PULSE 71; RESP 16; O2SAT 92
[2018-02-08] MEDS: Ipratropium/Albuterol Sulfate 3 ML AMPUL.NEB INHALATION (07:51)
[2018-02-08] MEDS: Carvedilol 3.125 MG TABLET PO (10:51)
[2018-02-08] MEDS: Tolterodine Tartrate 4 MG CAP.SA PO (10:52)
[2018-02-08] MEDS: FLUOROMETHOLONE 1 DROP BOTTLE 1 DRP EACHEYE (10:53)
[2018-02-08] MEDS: Atorvastatin Calcium 40 MG Tablet PO (10:53)
[2018-02-08] MEDS: Magnesium Oxide 400 MG Tablet PO (10:54)
[2018-02-08] MEDS: Nystatin Powder 15gm Bottle 1 APPLIC TOPICAL (10:54)
[2018-02-08] MEDS: Pantoprazole Sodium 40 MG Tablet PO (10:55)
[2018-02-08] MEDS: Lisinopril 10 MG Tablet PO (10:55)
[2018-02-08] MEDS: ALPRAZolam 0.5 MG Tablet PO (11:02)
[2018-02-08 11:16] LABS: Bedside Glucose 330 mg/dL (70-110)
--- NOTE | 2018-02-08 11:46 | DCINST_ITS ---
You will use the following diet at home:: Calorie/Carbohydrate Controlled (specify 1200, 1400, etc), Cardiac Your food should be the consistency of: Regular Your liquids should be the consistency of: Regular/Thin Discharge Activity: Return to Normal Activity Call your doctor if you observe: Fever of 101 or Higher, Shortness of breath, Dizziness, Fainting spells, Chest pain, - - Painful eye movement, blurry vision Allergies/Adverse Reactions: Allergies morphine Allergy (Verified 02/06/18 10:47) Anaphylaxis oxycodone Allergy (Verified 02/06/18 10:47) Swelling oxycodone HCl [From OxyContin] Allergy (Verified 02/06/18 10:47) Swelling temazepam [From Restoril] Allergy (Verified 02/06/18 10:47) Anaphylaxis adhesive tape Adverse Reaction (Verified 02/06/18 10:47) Other SKIN PEELS OFF WITH USE Medications to take at Discharge Albuterol Inhaler [Ventolin Hfa] 1 puff INHALATION Q4H PRN PRN 07/08/16 Atorvastatin Calcium 40 mg PO BID 07/08/16 Furosemide 40 mg PO TID 07/08/16 Lisinopril [Zestril] 10 mg PO DAILY 07/08/16 Carvedilol [Coreg] 3.125 mg PO BID 07/12/16 Fluticasone Propionate [24 Hour Allergy Relief] 1 - 2 sprays NS DAILY PRN 07/12/16 Insulin Glargine,Hum.rec.anlog [Basaglar Kwikpen U-100] 13 unit SQ QHS 07/12/16 Insulin Lispro [Humalog KwikPen] See Protocol SQ DAILY 07/12/16 Ipratropium [Atrovent Inhaler] 1 puff INHALATION 4X/DAY PRN 07/12/16 Ondansetron [Zofran Odt] 4 mg PO 4X/DAY PRN PRN 07/12/16 Ferrous Sulfate 325 mg PO DAILY #0 07/14/16 Magnesium Oxide [Mag-Ox 400] 400 mg PO DAILY #30 tablet 07/14/16 ALPRAZolam [Xanax] 0.5 mg PO BID 02/06/18 Albuterol Aerosols [Ventolin Aerosols] 2.5 mg INHALATION Q6H PRN PRN 02/06/18 Aspirin E.C. [Ecotrin] 81 mg PO DAILY@0800 02/06/18 Cholecalciferol (Vitamin D3) [Vitamin D3] 5,000 unit PO DAILY 02/06/18 Clindamycin Phosphate 1 applicatio TP PRN PRN 02/06/18 Erythromycin Base [Erythromycin] 1 applic EACH EYE QHS 02/06/18 Eye Relief 1 drop EACH EYE DAILY 02/06/18 Fluorometholone 1 drop EACH EYE BID 02/06/18 Fluticasone/Salmeterol [Advair 250-50 Diskus] 1 puff INHALATION BID 02/06/18 Hydrocodone/Acetaminophen [Hydrocodon-Acetaminophn 10-325] 1 tab PO Q6H PRN PRN 02/06/18 Ibuprofen 800 mg PO BID 02/06/18 Levothyroxine Sodium [Synthroid] 75 mcg PO DAILY 02/06/18 Metformin HCl 500 mg PO BID 02/06/18 Omeprazole 40 mg PO BID 02/06/18 Oxybutynin Chloride [Ditropan Xl] 10 mg PO DAILY 02/06/18 Oxybutynin Chloride [Ditropan Xl] 20 mg PO DAILY 02/06/18 Rivaroxaban [Xarelto] 20 mg PO DAILY 02/06/18 traMADol [Ultram] 50 mg PO TID 02/06/18 Clindamycin HCl 300 mg PO TID #20 capsule 02/08/18 predniSONE tablet 40 mg PO DAILY@0800 #14 tablet 02/08/18 The following prescriptions were given: predniSONE tablet 40 mg PO DAILY@0800 #14 tablet Clindamycin HCl 300 mg PO TID #20 capsule Primary Care Physician: Roslyn Cee DO [Primary Care Provider] - Please follow up with your Primary Care Physician in: 3-5 days Test Results: Test results from this visit will be discussed in further detail at your follow- up appointment, if applicable.
--- NOTE | 2018-02-08 11:54 | DS.PCM_ITS ---
Discharge Date and Diagnosis Date of Admission: 02/06/18 Date of Discharge: 02/08/18 - Secondary Discharge Diagnosis Chronic Problems JAIME (obstructive sleep apnea) (Chronic) Esophageal stricture (Chronic) Diabetes mellitus type 2 in obese (Chronic) Diverticulosis (Chronic) Chronic renal failure, stage 3 (moderate) (Chronic) HLD (hyperlipidemia) (Chronic) HTN (hypertension) (Chronic) Morbid obesity (Chronic) Nicotine dependence (Chronic) History of vertebral compression fracture (Chronic) L1 and L2, April 2016 Hypothyroidism (Chronic) COPD (chronic obstructive pulmonary disease) (Chronic) Lumbar canal stenosis (Chronic) Gastric bypass status for obesity (Chronic) Hospital Course and Treatment Imaging Results: CT face/sinus: IMPRESSION: Superficial soft tissue edema/induration involving the face, neck, and subcutaneous fat of the upper chest, associated with multiple small reactive appearing lymph nodes of the cervical chains and supraclavicular, in a pattern favoring a generalized cellulitis. The process extends upward to the periorbital soft tissues without intraorbital extension. There is no evidence of abscess. No focal nidus of infection is identified. Consults: None Operations: None Procedures: None Summary of Care Provided: Per HPI: The patient is a 67 year old F with past medical history as mentioned above presented to the emergency department because of swelling and redness of the face that started around 1 week ago. Patient stated that she had some insect bite in the right earlobe and shortly after, she started having swelling and redness of the face, first started around her right side of her face, progressed to around both eyes as well as in the left side and chin area, associated with significant redness and erythema and without aggravating or relieving factors. She mentioned that yesterday, the swelling and erythema was worse than today and her eyes were almost closed. She denied fever or chills. She denied difficulty breathing or difficulty swallowing. She denies sore throat. In the emergency department, she was afebrile, blood pressure was stable, pulse ox was 97% on 2 L. Her routine blood work was remarkable for hemoglobin of 8.9 g/dL, BUN of 34 and creatinine of 1.29. Her LFT was normal. CT scan of the facial bones and sinuses revealed superficial soft tissue edema of the face, neck and subcutaneous fat of the upper chest with multiple small reactive lymph nodes, no abscess. She is being admitted for acute probably bacterial facial cellulitis for treatment. General: Alert, Oriented x3, Cooperative HEENT: Atraumatic, PERRLA, EOMI, Normocephalic, - - Swelling and erythema of both sides around the eyes, worse on the right. Somewhat warm to the touch, no open areas or drainage. She can open her right eye now which is much improved compared to yesterday Neck: Supple, No JVD, Negative Carotid Bruits Lungs: Clear to auscultation, Normal air movement no wheezes, no rales, no rhonchi Cardiovascular: Regular rate, regular rhythm, No murmurs, no rubs, no gallops Abdomen: Bowel Sounds Present, Soft, Non Tender, nondistended, obese Extremities: No edema, Capillary Refill Less than 3 Seconds Skin: Facial rash as described above Musculoskeletal: No Tenderness to Palpation of Joints or Extremities Neurological: Cranial nerves II-XII grossly intact, neuro grossly intact, sensation intact Psych/Mental Status: Normal Affect, Appropriate, Alert and oriented to time, place, person, mood and affect Hospital Course: 1. Facial swelling/cellulitis versus allergic reaction - 67-year-old female with extensive past medical history presenting with 1 week history of right facial redness and swelling. She states that she thinks she was bitten by an insect and her redness and swelling has just worsened every day since. On the day of admission her swelling was the worst that it had been. She denies having been given antibiotics for this prior to admission. On admission she was started on the clindamycin though she started complaining of itchiness and even more swelling on the day after admission, therefore she was also given a dose of Benadryl and started on p.o. prednisone. On the day of discharge her swelling is significantly improved, she is able to open up her right eye. She is denying any blurry vision or pain with eye movement. CT scan did not demonstrate any extension of an abscess into the orbits. She will be discharged on 7 days of clindamycin 3 times daily and prednisone daily. She is to follow-up with her PCP in 3-5 days. I discussed this plan with her and she really wants to go home I offered her to stay 1 more day just to make sure that there is continued improvement, however she is pushing to go home. She understands the risks of going home and is okay with it. 2. Her other home echinosis were evaluated and her home medications were continued where appropriate - Physical Exam Vital Signs Temp Pulse Resp BP Pulse Ox 98.5 F 71 16 158/93 H 92 02/08/18 07:31 02/08/18 07:51 02/08/18 07:51 02/08/18 07:31 02/08/18 07:51 Oxygen Flow Rate (L/min) 3 Oxygen Delivery Method Room Air Weight: 205 lb 4.006 oz Body Mass Index (BMI) 38.1 Intake and Output for Last 24 Hours 02/06/18 02/07/18 02/08/18 23:59 23:59 23:59 Intake Total 1015 / 1015 720 / 720 Output Total 400 / 400 650 / 650 Balance 615 / 615 70 / 70 Laboratory Tests Past 24 Hrs 02/08/18 02/08/18 06:15 06:15 WBC 10.0 RBC 3.48 L Hgb 8.0 L Hct 25.9 L MCV 74.4 L MCH 23.0 L MCHC 30.9 L RDW 17.0 H RDW Differential 45.0 H Plt Count 286 MPV 10.3 Immature Gran % (Auto) 0.400 Neut % (Auto) 81.4 H Lymph % (Auto) 13.6 L [place] % (Auto) 4.5 Eos % (Auto) 0.0 Baso % (Auto) 0.1 Absolute Neuts (auto) 8.1 H Absolute Lymphs (auto) 1.36 Total Counted Pending Differential Comment SCANNED Hypochromasia 2+ Anisocytosis 2+ Microcytosis 2+ Sodium 137 Potassium 4.5 Chloride 100 Carbon Dioxide 32.0 Anion Gap 5 BUN 31 H Creatinine 1.32 H Estim Creat Clear Calc 30.35 Est GFR (MDRD) Af Amer 51 L Est GFR (MDRD) Non-Af 42 L BUN/Creatinine Ratio 23.5 H Glucose 191 H Calcium 8.0 L POC Glucose 02/08/18 02/08/18 02/07/18 11:08 06:40 21:45 POC Glucose 330 H 187 H 270 H 02/07/18 16:43 POC Glucose 230 H Discharge Activity: Return to Normal Activity Call your doctor if you observe: Fever of 101 or Higher, Shortness of breath, Dizziness, Fainting spells, Chest pain, - - Painful eye movement, blurry vision Home Medications: Medications to take at Discharge Albuterol Inhaler [Ventolin Hfa] 1 puff INHALATION Q4H PRN PRN 07/08/16 Atorvastatin Calcium 40 mg PO BID 07/08/16 Furosemide 40 mg PO TID 07/08/16 Lisinopril [Zestril] 10 mg PO DAILY 07/08/16 Carvedilol [Coreg] 3.125 mg PO BID 07/12/16 Fluticasone Propionate [24 Hour Allergy Relief] 1 - 2 sprays NS DAILY PRN 07/12/16 Insulin Glargine,Hum.rec.anlog [Basaglar Kwikpen U-100] 13 unit SQ QHS 07/12/16 Insulin Lispro [Humalog KwikPen] See Protocol SQ DAILY 07/12/16 Ipratropium [Atrovent Inhaler] 1 puff INHALATION 4X/DAY PRN 07/12/16 Ondansetron [Zofran Odt] 4 mg PO 4X/DAY PRN PRN 07/12/16 Ferrous Sulfate 325 mg PO DAILY #0 07/14/16 Magnesium Oxide [Mag-Ox 400] 400 mg PO DAILY #30 tablet 07/14/16 ALPRAZolam [Xanax] 0.5 mg PO BID 02/06/18 Albuterol Aerosols [Ventolin Aerosols] 2.5 mg INHALATION Q6H PRN PRN 02/06/18 Aspirin E.C. [Ecotrin] 81 mg PO DAILY@0800 02/06/18 Cholecalciferol (Vitamin D3) [Vitamin D3] 5,000 unit PO DAILY 02/06/18 Clindamycin Phosphate 1 applicatio TP PRN PRN 02/06/18 Erythromycin Base [Erythromycin] 1 applic EACH EYE QHS 02/06/18 Eye Relief 1 drop EACH EYE DAILY 02/06/18 Fluorometholone 1 drop EACH EYE BID 02/06/18 Fluticasone/Salmeterol [Advair 250-50 Diskus] 1 puff INHALATION BID 02/06/18 Hydrocodone/Acetaminophen [Hydrocodon-Acetaminophn 10-325] 1 tab PO Q6H PRN PRN 02/06/18 Ibuprofen 800 mg PO BID 02/06/18 Levothyroxine Sodium [Synthroid] 75 mcg PO DAILY 02/06/18 Metformin HCl 500 mg PO BID 02/06/18 Omeprazole 40 mg PO BID 02/06/18 Oxybutynin Chloride [Ditropan Xl] 10 mg PO DAILY 02/06/18 Oxybutynin Chloride [Ditropan Xl] 20 mg PO DAILY 02/06/18 Rivaroxaban [Xarelto] 20 mg PO DAILY 02/06/18 traMADol [Ultram] 50 mg PO TID 02/06/18 Clindamycin HCl 300 mg PO TID #20 capsule 02/08/18 predniSONE tablet 40 mg PO DAILY@0800 #14 tablet 02/08/18 Following Prescrptions Were Given to Patient: predniSONE tablet 40 mg PO DAILY@0800 #14 tablet Clindamycin HCl 300 mg PO TID #20 capsule Primary Care Physician: Roslyn Cee DO [Primary Care Provider] - Please follow up with your Primary Care Physician in: 3-5 days Disposition: Home Minutes spent on discharge:: 35 Patient Condition:: Good Medical Necessity - Tobacco Use Smoking Status: Current every day smoker Tobacco Use: Cigarettes Meaningful Use Info Meaningful Use Diagnoses (Choose all that apply): None applicable Code Visit Inpatient E&M: 97595 Disch Hosp
[2018-02-09 13:40] LABS: Transferrin 243 mg/dL (200-370)
== END 2018-02-08 14:03 | disposition home or self-care (01) | DRG 383 ==
LOC: ED 11:24 → MS3 17:02
PROVIDERS: Physician Assistant; Admitting Provider Hospitalist; Emergency Provider Emergency Medicine; Family Provider Family Medicine; PCP Family Medicine; Referring Provider Hospitalist; Visit Provider Family Medicine
DX: L03.211 Cellulitis of face (principal); N18.3 Chronic kidney disease, stage 3 (moderate); I12.9 Hypertensive chronic kidney disease with stage 1 through stage 4 chronic kidney disease, or unspecified chronic kidney disease; E11.22 Type 2 diabetes mellitus with diabetic chronic kidney disease; D50.9 Iron deficiency anemia, unspecified; E78.5 Hyperlipidemia, unspecified; G47.33 Obstructive sleep apnea (adult) (pediatric); E03.9 Hypothyroidism, unspecified; J44.9 Chronic obstructive pulmonary disease, unspecified; E66.9 Obesity, unspecified; F17.210 Nicotine dependence, cigarettes, uncomplicated; Z98.84 Bariatric surgery status; Z68.38 Body mass index [BMI] 38.0-38.9, adult; Z99.81 Dependence on supplemental oxygen; Z79.4 Long term (current) use of insulin; Z86.718 Personal history of other venous thrombosis and embolism; Z79.02 Long term (current) use of antithrombotics/antiplatelets; T63.481A Toxic effect of venom of other arthropod, accidental (unintentional), initial encounter
CPT/HCPCS: 36415; 70487; 80048; 80053; 82728; 82962; 83540; 83550; 84466; 85025; 85610; 85730; 87040; 94640; 97802; 99282; J7050; Q9967; A4216

== ENCOUNTER → 2018-06-25 15:32 | Outpatient (CLI) | payer MEDICAID, SELFPAY ==
[2018-02-06 17:51] VITALS: BMI 38.1
[2018-06-25 18:06] LABS: Absolute Lymphocyte Count 3.11 X10^3/ul (0.83-4.51); Absolute Neutrophil Count 4.5 X10^3/uL (2.0-7.7); Basophil# 0.04 X10^3/uL; Basophil% 0.4 % (0-1); Eosinophil# 0.16 X10^3/uL; Eosinophils% 1.8 % (0-5); Hematocrit 19.3 % (37-47); Lymphocyte # 3.11 X10^3/ul (4.0); Lymphocyte % 34.9 % (19-41); Mean Corp Hgb Conc 26.4 g/gl (32-36); Mean Corpuscular Hgb 16.6 pg (27.0-32.0); Mean Corpuscular Volume 62.7 fL (81-99); Monocyte# 1.04 X10^3/uL; Monocyte% 11.7 % (0-10); Neutrophil # 4.53 X10^3/uL (2.7-7.7); Neutrophil % 50.9 % (47-70); Platelet Count 188 K/mm3 (150-450); RBC Distribution Width CV 21.6 % (11.6-14.6); RBC Distribution Width SD 48.9 fl (35.1-43.9); Red Blood Count 3.08 M/mm3 (4.2-5.4); White Blood Count 8.9 K/mm3 (4.4-11.0)
[2018-06-25 18:09] LABS: ALB/GLOB Ratio 0.9 RATIO (0.9-2.4); AST(SGOT) 24 U/L (15-37); Alanine Aminotransfer ALT/SGPT 22 U/L (13-56); Albumin, Serum 3.3 g/dL (3.2-5.0); Alkaline Phosphatase 64 U/L (45-117); Anion Gap 5 (5-15); BUN 30 mg/dL (7-18); BUN/Creat Ratio 19.9 RATIO (10-20); Calcium,Total 7.9 mg/dL (8.5-10.1); Chloride 102 mmol/L (98-107); Creatinine, Serum 1.51 mg/dL (0.55-1.02); EST Glomerular Filtration Rate 36 mL/min (>60); Est Glom Filt Rate - Afr Amer 44 mL/min (>60); Free T3 1.8 pg/mL (2.18-3.98); Globulin 3.5 g/dL (2.2-4.2); Glucose 97 mg/dL (74-106); Potassium 4.6 mmol/L (3.5-5.1); Prealbumin 7.7 mg/dL (20.0-40.0); Protein, Total 6.8 g/dL (6.4-8.2); Sodium Level 140 mmol/L (136-145); Thyroid Stim Hormone (TSH) 1.83 uIU/mL (0.358-3.74)
[2018-06-25 18:13] LABS: Hemoglobin A1c < 3.5 % (4.2-6.3)
[2018-06-25 18:22] LABS: Differential Indicated SCAN CRITERIA MET; Hemoglobin 5.1 g/dl (12.0-15.0); POSITIVE COUNT YES; POSITIVE DIFFERENTIAL NO; POSITIVE MORPHOLOGY YES
[2018-06-25 18:39] LABS: Differential Comment SCANNED
[2018-06-25 18:40] LABS: Anisocytosis 3+; Hypochromasia 4+; Microcytosis 1+; Platelet Estimate ADEQUATE (ADEQ)
[2018-06-25 18:41] LABS: Crenated RBC RARE; Schistocytes RARE; Target Cells 1+
[2018-06-26 12:28] LABS: Pathologist Review Reviewed
== END ==
PROVIDERS: Family Provider Family Medicine; PCP Family Medicine; Visit Provider Family Medicine
DX: E11.9 Type 2 diabetes mellitus without complications (principal); R53.83 Other fatigue; E46 Unspecified protein-calorie malnutrition; E03.9 Hypothyroidism, unspecified; D64.9 Anemia, unspecified; R60.9 Edema, unspecified
CPT/HCPCS: 36415; 80053; 83036; 83880; 84134; 84439; 84443; 84481; 85025

== ENCOUNTER 2018-06-25 20:23 | Inpatient (IN) | payer MEDICAID, SELFPAY ==
[2018-02-06 17:51] VITALS: BMI 38.1
[2018-06-25 20:23] VITALS: BP 134/37; PULSE 92; RESP 18; TEMP 36.6; O2SAT 93; BMI 44.9
[2018-06-25 21:25] VITALS: BP 191/92; BP 209/89; PULSE 78; PULSE 80; RESP 16; O2SAT 90
--- NOTE | 2018-06-25 21:34 | RAD_ITS ---
STUDY: X-RAY CHEST REASON FOR EXAM: Female, 68 years old. Dyspnea TECHNIQUE: Single AP portable view of the chest. COMPARISON: Prior chest radiograph of July 13, 2016 FINDINGS: The lungs are clear and expanded. There is no demonstrated pleural abnormality. Normal size heart. Normal mediastinum and erwin. Normal visualized pulmonary arteries. There is atherosclerotic calcification of the aortic arch with tortuosity. There are diffuse degenerative changes of the visualized thoracic spine. Normal visualized ribs, clavicles, and shoulders. There is no demonstrated abnormality of the visualized soft tissue structures of the upper abdomen. RAD/Chest 1 View (Portable) IMPRESSION: No acute cardiopulmonary findings or changes. Negative for new consolidation, focal atelectasis or a substantial pleural effusion. Electronically Signed: Vanessa Villafuerte MD at 21:55 EDT , Service support ,
[2018-06-25] MEDS: 0.9% Normal Saline 1,000 ML 150 ML IV (21:35)
--- NOTE | 2018-06-25 22:08 | HP.PCM_ITS ---
Problem List (1) Diabetes mellitus type 2 in obese Status: Chronic (2) HTN (hypertension) Status: Chronic (3) Acute blood loss anemia Status: Acute History of Present Illness Date of Admission: 06/25/18 Chief Complaint: low hemoglobin on outpatient lab The patient is a 68 year old F with a significant history of HTN; hypothyroidism; COPD; tobacco abuse; DVT on Xarelto; home oxygen at night and as needed; morbid obesity who presented with low hemoglobin on outpatient lab. Hemoglobin outpatient was 5.1 so patient was sent to the emergency department. Chronically patient baseline hemoglobin is around 8. At the emergency department type and cross was ordered and 2 units of blood was ordered to be transfused. Emergency department doctor reported that patient was positive for fecal occult blood test; and rectal exams was unremarkable. Past Medical History Past Medical History (Chronic Problems): Chronic Problems JAIME (obstructive sleep apnea) (Chronic) Esophageal stricture (Chronic) Diabetes mellitus type 2 in obese (Chronic) Diverticulosis (Chronic) Chronic renal failure, stage 3 (moderate) (Chronic) HLD (hyperlipidemia) (Chronic) HTN (hypertension) (Chronic) Morbid obesity (Chronic) Nicotine dependence (Chronic) History of vertebral compression fracture (Chronic) L1 and L2, April 2016 Hypothyroidism (Chronic) COPD (chronic obstructive pulmonary disease) (Chronic) Lumbar canal stenosis (Chronic) Gastric bypass status for obesity (Chronic) Allergies morphine Allergy (Verified 06/25/18 20:25) Anaphylaxis oxycodone Allergy (Verified 06/25/18 20:25) Swelling oxycodone HCl [From OxyContin] Allergy (Verified 06/25/18 20:25) Swelling temazepam [From Restoril] Allergy (Verified 06/25/18 20:25) Anaphylaxis adhesive tape Adverse Reaction (Verified 06/25/18 20:25) Other SKIN PEELS OFF WITH USE Home Medications: Ambulatory Orders Medication Instructions Recorded Albuterol Inhaler [Ventolin Hfa] 1 puff INHALATION Q4H PRN PRN 07/08/16 Atorvastatin Calcium 40 mg PO BID 07/08/16 Furosemide 40 mg PO TID 07/08/16 Lisinopril [Zestril] 10 mg PO DAILY 07/08/16 Carvedilol [Coreg] 3.125 mg PO BID 07/12/16 Fluticasone Propionate [24 Hour 1 - 2 sprays NS DAILY PRN 07/12/16 Allergy Relief] Insulin Glargine,Hum.rec.anlog 13 unit SQ QHS 07/12/16 [Basaglar Kwikpen U-100] Insulin Lispro [Humalog KwikPen] See Protocol SQ DAILY 07/12/16 Ipratropium [Atrovent Inhaler] 1 puff INHALATION 4X/DAY PRN 07/12/16 Ondansetron [Zofran Odt] 4 mg PO 4X/DAY PRN PRN 07/12/16 Magnesium Oxide [Mag-Ox 400] 400 mg PO DAILY #30 tablet 07/14/16 ALPRAZolam [Xanax] 0.5 mg PO BID 02/06/18 Albuterol Aerosols [Ventolin 2.5 mg INHALATION Q6H PRN PRN 02/06/18 Aerosols] Aspirin E.C. [Ecotrin] 81 mg PO DAILY@0800 02/06/18 Cholecalciferol (Vitamin D3) 5,000 unit PO DAILY 02/06/18 [Vitamin D3] Erythromycin Base [Erythromycin] 1 applic EACH EYE QHS 02/06/18 Eye Relief 1 drop EACH EYE DAILY 02/06/18 Fluorometholone 1 drop EACH EYE BID 02/06/18 Fluticasone/Salmeterol [Advair 1 puff INHALATION BID 02/06/18 250-50 Diskus] Hydrocodone/Acetaminophen 1 tab PO Q6H PRN PRN 02/06/18 [Hydrocodon-Acetaminophn 10-325] Ibuprofen 800 mg PO BID 02/06/18 Levothyroxine Sodium [Synthroid] 75 mcg PO DAILY 02/06/18 Metformin HCl 500 mg PO BID 02/06/18 Omeprazole 40 mg PO BID 02/06/18 Oxybutynin Chloride [Ditropan Xl] 10 mg PO DAILY 02/06/18 Oxybutynin Chloride [Ditropan Xl] 20 mg PO DAILY 02/06/18 Rivaroxaban [Xarelto] 20 mg PO DAILY 02/06/18 traMADol [Ultram] 50 mg PO TID 02/06/18 Surgical History: total knee arthroplasty, - - left knee replaced, right ankle surgery.gastric bypass Psychiatric History: No pertinent psych hx ARTICULATION OFFICER History: No pertinent ARTICULATION OFFICER history Smoking Status: Current every day smoker - *Family History Maternal History Items: Diabetes Paternal History Items: Hypertension Review of Systems Constitutional: Denies: Chills, Fever, Weight Change HEENT: Denies: Head Aches, Sinus Congestion, Sinus Drainage Cardiovascular: Reports: Edema. Denies: Chest Pain, Palpitations Respiratory: Denies: Cough, Shortness of breath at rest, Sputum production Gastrointestinal: Denies: Abdominal Pain, Nausea, Vomiting Genitourinary: Denies: Dysuria Musculoskeletal: Denies: Joint Pain, Joint Tenderness Skin: Denies: Rash, Wounds Neurological: Denies: Numbness, Tingling, Focal weakness Psychiatric: Denies: Anxiety, Depression, Homicidal Ideations, Suicidal Ideations Hematologic/ Lymphatic: Denies: Easy Bruising, Easy Bleeding VTE Information - Inpt Only VTE Present on Admission: No - Bilateral legs VTE Mechan Device Prophylaxis: SCD's VTE Pharm Prophylaxis ordered?: No Patient Problems: Active and Suspected Problems Anemia (Acute) Acute blood loss anemia (Acute) - Physical Exam General: Alert, Oriented x3, Cooperative HEENT: Atraumatic, PERRLA, EOMI, Normocephalic Neck: Supple, No JVD, Negative Carotid Bruits Lungs: Clear to auscultation, Normal air movement Cardiovascular: Regular rate, No murmurs Abdomen: Bowel Sounds Present, Soft, Non Tender Extremities: Capillary Refill Less than 3 Seconds, Edema - Bilateral lower extremity Skin: No rashes, No breakdown Musculoskeletal: No Tenderness to Palpation of Joints or Extremities Neurological: Cranial nerves II-XII grossly intact Psych/Mental Status: Normal Affect, Appropriate Vital Signs Temp Pulse Resp BP Pulse Ox 98 F 80 16 191/92 H 90 06/25/18 20:23 06/25/18 21:25 06/25/18 21:25 06/25/18 21:25 06/25/18 21:25 Oxygen Delivery Method Room Air Weight: 107.8 kg Body Mass Index (BMI) 44.9 Laboratory Tests Past 24 Hrs 06/25/18 21:00 Blood Type Pending Antibody Screen Pending Crossmatch See Detail Assessment/Plan All Active Problems Anemia (Acute) Acute blood loss anemia (Acute) The patient is a 68 year old F with a significant history of HTN; hypothyroidism; COPD; tobacco abuse;DVT on Xarelto; home oxygen at night and as needed ;morbid obesity who presented with low hemoglobin on outpatient lab and found to have a positive fecal occult blood test. Acute blood loss anemia. Outpatient lab with hemoglobin of 5.1 with baseline around 8; and with positive fecal occult blood tests on lab. 3 units of blood was ordered emergency department; transfuse Nursing communication to get an H&H 1 hour after transfusion of blood. General surgery Dr. Guardado consulted for scope. Patient on clear liquids now. General surgery is planned to scope on 06/27/2018. Hold aspirin and Xarelto. Hypertension On presentation her blood pressure was not within goal Hold Coreg and lisinopril continued Lasix continued. PRN hydralazine added. Trend blood pressure and adjust blood pressure medication. Bilateral leg swelling Home Lasix continued Tobacco abuse Counseled Nicotine patch ordered Hypothyroidism Synthroid ordered. Chronic pain [place] ordered Diabetes mellitus Home Lantus continued Metformin held Correction scale insulin continued. DVT prophylaxis SCD Code Visit Inpatient E&M: 88350 Init Hosp L3
--- NOTE | 2018-06-25 22:36 | ED.VISSUMM ---
- ER Visit Summary Date of Service: 06/25/18 Chief Complaint: [Anemia] History of Present Illness: The patient is a 68 F [resents the emergency department complaint of anemia today. Patient states that she was having blood work done today by her primary care physician who then called her and told her to come to the emergency department because she was very anemic. Patient has been having some fatigue and some shortness of breath with activity and exertion. Patient generally feels weak. She denies any blood in her stool or black tarry stool. Patient does have a history of diabetes, hypertension, hypothyroidism, history of DVT and is currently on Xarelto. Patient has had prior gastric bypass.] Physical Examination: [HEENT-PERRLA, EOMI. Cranial nerves II through XII grossly intact. TMs clear. Mucous membranes moist. No adenopathy. Cardiovascular-regular rate and rhythm without murmur or ectopy Lungs-clear to auscultation, chest wall stable without crepitus or subcu emphysema Abdomen-normoactive bowel sounds, soft, nontender, no rebound or rigidity, no peritoneal signs. Rectal exam-patient had brown stool that was Hemoccult positive. No masses noted in the rectal vault and no hemorrhoids noted. Extremities-intact ?4, normal range of motion, normal pulses, atraumatic] Test Results: [Blood work performed today showed a white count of 8.9, hemoglobin 5.1, hematocrit 19, placed 188. Chemistries unremarkable. BUN was 30 and creatinine 1.51. BNP was 1722. Chest x-ray obtained showed nothing acute.] Emergency Department Course and Treatment: [She was typed and crossed for 2 units packed red cells. Patient was given normal saline.] Treatment Plan: [Admit] Disposition: [Admit] Impression: [Medic anemia GI bleed Lysed weakness] This note was generated with [employer] dictation software. It may contain incorrect words, spelling, and punctuation that were not noted in review of the chart prior to signing ED Disposition - Plan for ED Patient: Referrals: Roslyn Cee DO [Primary Care Provider] -
[2018-06-25 23:06] VITALS: BP 156/86; PULSE 81; RESP 16; TEMP 36.7; O2SAT 4
--- NOTE | 2018-06-25 23:12 | ED.RN ---
2306 ONE UNIT PRBC STARTED AT 15CC/HR.WILL MONITOR PT.
[2018-06-25 23:21] VITALS: BP 168/94; PULSE 75; RESP 16; TEMP 36.7; O2SAT 100
--- NOTE | 2018-06-25 23:22 | ED.RN ---
PT MARITA BLOOD TRANSFUSION WITHOUT DIFFICULTIES,BLOOD INCREASED TO 135CC/HR.
[2018-06-26] VITALS (29 sets, daily range): BP systolic 160–198; BP diastolic 64–128; PULSE 75–97; RESP 16–20; TEMP 36.4–37.2; O2SAT 88–99; BMI 44.6; BMI 44.7
--- NOTE | 2018-06-26 00:09 | CON.PCM_ITS ---
Problem List (1) Anemia Status: Acute Qualifiers: Anemia type: unspecified type Qualified Code(s): D64.9 - Anemia, unspecified Reason for Consult Date of Consultation: 06/26/18 History of Present Illness: The patient is a 68 year old F who presents in the ER in referral from her primary care physician Dr. Roslyn Cee because of fatigue and abnormal laboratory. I was asked to see the patient by for surgical consultation regarding brown Hemoccult positive stool and anemia. An electronic copy of my surgical consult will be present in her electronic records. At 330 today her hemoglobin is 5.1. She has not noticed any nausea or vomiting or bright red blood per rectum. February 08, 2018 her hemoglobin was 8 February 07, 2018 her hemoglobin was 9.2 February 06, 2018 it was 8.9. She states that for perhaps the past 2 months she has been on Xarelto because of diagnosis of DVT. Dating back to July 10, 2016 I was asked to do an emergency upper endoscopy with Dobbhoff tube placement to assist with enteral alimentation while she was in the ICU here at [place]. The patient has a history of gastric bypass surgery. She had a distal esophageal stenosis but it would permit advancement of the scope. There was no active GI bleeding at that time. The patient states that remotely she has had a previous history of diverticulitis which was treated conservatively. She is very nonspecific as to when she might of had a previous colonoscopy. Possibly when she was in [place] 4 years ago. She is a chronic cigarette smoker. She is on chronic oxygen. She has not stopped her smoking despite her DVT. Past Medical History Past Medical History (Chronic Problems): Chronic Problems JAIME (obstructive sleep apnea) (Chronic) Esophageal stricture (Chronic) Diabetes mellitus type 2 in obese (Chronic) Diverticulosis (Chronic) Chronic renal failure, stage 3 (moderate) (Chronic) HLD (hyperlipidemia) (Chronic) HTN (hypertension) (Chronic) Morbid obesity (Chronic) Nicotine dependence (Chronic) History of vertebral compression fracture (Chronic) L1 and L2, April 2016 Hypothyroidism (Chronic) COPD (chronic obstructive pulmonary disease) (Chronic) Lumbar canal stenosis (Chronic) Gastric bypass status for obesity (Chronic) Allergies morphine Allergy (Verified 06/25/18 20:25) Anaphylaxis oxycodone Allergy (Verified 06/25/18 20:25) Swelling oxycodone HCl [From OxyContin] Allergy (Verified 06/25/18 20:25) Swelling temazepam [From Restoril] Allergy (Verified 06/25/18 20:25) Anaphylaxis adhesive tape Adverse Reaction (Verified 06/25/18 20:25) Other SKIN PEELS OFF WITH USE Home Medications: Ambulatory Orders Medication Instructions Recorded Albuterol Inhaler [Ventolin Hfa] 1 puff INHALATION Q4H PRN PRN 07/08/16 Atorvastatin Calcium 40 mg PO BID 07/08/16 Furosemide 40 mg PO TID 07/08/16 Lisinopril [Zestril] 10 mg PO DAILY 07/08/16 Carvedilol [Coreg] 3.125 mg PO BID 07/12/16 Fluticasone Propionate [24 Hour 1 - 2 sprays NS DAILY PRN 07/12/16 Allergy Relief] Insulin Glargine,Hum.rec.anlog 13 unit SQ QHS 07/12/16 [Basaglar Kwikpen U-100] Insulin Lispro [Humalog KwikPen] See Protocol SQ DAILY 07/12/16 Ipratropium [Atrovent Inhaler] 1 puff INHALATION 4X/DAY PRN 07/12/16 Ondansetron [Zofran Odt] 4 mg PO 4X/DAY PRN PRN 07/12/16 Magnesium Oxide [Mag-Ox 400] 400 mg PO DAILY #30 tablet 07/14/16 ALPRAZolam [Xanax] 0.5 mg PO BID 02/06/18 Albuterol Aerosols [Ventolin 2.5 mg INHALATION Q6H PRN PRN 02/06/18 Aerosols] Aspirin E.C. [Ecotrin] 81 mg PO DAILY@0800 02/06/18 Cholecalciferol (Vitamin D3) 5,000 unit PO DAILY 02/06/18 [Vitamin D3] Erythromycin Base [Erythromycin] 1 applic EACH EYE QHS 02/06/18 Eye Relief 1 drop EACH EYE DAILY 02/06/18 Fluorometholone 1 drop EACH EYE BID 02/06/18 Fluticasone/Salmeterol [Advair 1 puff INHALATION BID 02/06/18 250-50 Diskus] Hydrocodone/Acetaminophen 1 tab PO Q6H PRN PRN 02/06/18 [Hydrocodon-Acetaminophn 10-325] Ibuprofen 800 mg PO BID 02/06/18 Levothyroxine Sodium [Synthroid] 75 mcg PO DAILY 02/06/18 Metformin HCl 500 mg PO BID 02/06/18 Omeprazole 40 mg PO BID 02/06/18 Oxybutynin Chloride [Ditropan Xl] 10 mg PO DAILY 02/06/18 Oxybutynin Chloride [Ditropan Xl] 20 mg PO DAILY 02/06/18 Rivaroxaban [Xarelto] 20 mg PO DAILY 02/06/18 traMADol [Ultram] 50 mg PO TID 02/06/18 Surgical History: total knee arthroplasty, - - left knee replaced, right ankle surgery.gastric bypass Psychiatric History: No pertinent psych hx ELIGIBILITY SERVICES REPRESENTATIVE History: No pertinent ELIGIBILITY SERVICES REPRESENTATIVE history Smoking Status: Current every day smoker - *Family History Maternal History Items: Diabetes Paternal History Items: Hypertension Review of Systems Constitutional: Denies: Anorexia HEENT: Denies: Dysphasia Respiratory: Reports: Cough, Shortness of Breath, Wheezing Gastrointestinal: Denies: Abdominal Pain, Constipation, Hematochezia, Melena Musculoskeletal: Reports: Leg Pain Skin: Reports: - - Lower extremity swelling Neurological: Reports: Balance problems Endocrine: Denies: Change in Body Habitus Patient Problems: Active and Suspected Problems Anemia (Acute) - Physical Exam General: Alert, No apparent distress, - - Very hoarse voice difficult to interpret at times. She appears dyspneic at rest HEENT: - - Nasal prong oxygen in place. Oral: Moist Mucosa Neck: Supple Lungs: - - Coarse rhonchi bilaterally with scattered wheezes. Poor respiratory excursion Cardiovascular: Regular rate, Regular Rhythm Abdomen: Bowel Sounds Present, Soft, Non Tender, Obese Extremities: - - Notable bilateral lower extremity tight swelling Skin: - - Bilateral lower extremity areas of skin tear with Band-Aids applied Psych/Mental Status: Normal Affect Vital Signs Temp Pulse Resp BP Pulse Ox 98.1 F 75 16 168/94 H 100 06/25/18 23:21 06/25/18 23:21 06/25/18 23:21 06/25/18 23:21 06/25/18 23:21 Oxygen Flow Rate (L/min) 2 Oxygen Delivery Method Nasal Cannula Weight: 237 lb 10.533 oz Body Mass Index (BMI) 44.9 Intake and Output for Last 24 Hours 06/24/18 06/25/18 06/26/18 23:59 23:59 23:59 Intake Total 0 / 0 Balance 0 / 0 Microbiology Past 72 Hours 06/25/18 21:05 Stool Occult Blood (ILIANA) - Final Stool Occult Blood Positive Laboratory Tests Past 24 Hrs 06/25/18 21:00 Blood Type A POSITIVE Antibody Screen NEGATIVE Crossmatch See Detail Assessment/Plan All Active Problems Anemia (Acute) Chronically ill 68-year-old female. She does not appear to have an acute GI bleed. By her report she previously has been on iron therapy but at some point in the past her iron supplementation pills were stopped according to her. She does have a history of esophageal stricture. She has had a history of gastric bypass procedure. She has had a remote history of diverticulitis. She has a clinically benign abdomen She is on Xarelto for DVT. I would recommend obtaining bilateral extremity venous duplex exams to assess the status of her reported DVT. She should have her Xarelto held. I discussed with her the technique, benefits, risks, alternatives of combined upper and low er endoscopy with monitored anesthesia care. I explained to the patient that clearly because of her ongoing pulmonary disease tobacco use and chronic multiple medical problems that she is at increased risk. I explained her that her doctors are concerned about resuming her Xarelto in the face of her anemia 5. She is currently getting blood transfusion. I anticipate bowel preparation later today and hopefully proceed with endoscopy on Saturday. We will await her consent. My impression is that patient likely has a chronic and iron deficiency anemia aggravated by insufficient iron supplementation and chronic anticoagulation. We will check an iron profile. CC: Dr.Agyepong Blair Guardado M.D., F.A.C.S.
--- NOTE | 2018-06-26 00:15 | VDLE_ITS ---
Reason For Study: SWELLING RIGHT LEFT GSV is normal. GSV is normal. CFV is compressible, spontaneous, competent CFV is compressible, spontaneous, competent, and demonstrates pulsatile venous flow. and demonstrates pulsatile venous flow. FV is compressible, spontaneous, phasic, FV is compressible, spontaneous, phasic, competent and demonstrates normal competent and demonstrates normal augmentation. augmentation. POP V is compressible, spontaneous, phasic, POP V is compressible, spontaneous, phasic, competent and demonstrates normal competent and demonstrates normal augmentation. augmentation. T/P Trunk is compressible. T/P Trunk is compressible. PTV is compressible. PTV is compressible. RT PerV is compressible. LT PerV is compressible. Procedure Exam performed portable in patient room. A preliminary report was called and/or faxed to [facility]. Interpretation Summary No evidence for acute deep venous thrombosis bilateral lower extremities with patent and compressible bilateral great saphenous veins. Pulsitile venous flow is noted bilaterally consistent with proximal venous hypertension. Clinical correlation would be appropriate Ordering Physician: Blair Guardado Referring Physician: HECTOR MOREIRA Performed By: Tameka Clements, CARLOS, RVT
[2018-06-26 00:45] LABS: Bedside Glucose 121 mg/dL (70-110)
[2018-06-26] MEDS: hydrALAZINE 20 MG/ML Vial 5 MG IV ×4 (01:27→20:32)
[2018-06-26] MEDS: 0.9% NaCl Peripheral Flush Adult/Peds IV ×6 (01:27→20:35)
--- NOTE | 2018-06-26 05:47 | PCM.PN.SRG ---
Patient Problems: Active and Suspected Problems Anemia (Acute) Subjective: Pt denies abdominal pain She is not interested in moving much - Physical Exam Cardiovascular: - - diminished in bases Abdomen: Soft, Non Tender, Obese Vital Signs Temp Pulse Resp BP Pulse Ox 98 F 88 20 H 160/67 H 96 06/26/18 04:46 06/26/18 04:46 06/26/18 04:46 06/26/18 04:46 06/26/18 04:46 Oxygen Flow Rate (L/min) 2 Oxygen Delivery Method Nasal Cannula Weight: 237 lb 3.478 oz Body Mass Index (BMI) 44.6 Intake and Output for Last 24 Hours 06/24/18 06/25/18 06/26/18 23:59 23:59 23:59 Intake Total 0 / 0 400 / 400 Balance 0 / 0 400 / 400 Microbiology Past 72 Hours 06/25/18 21:05 Stool Occult Blood (ILIANA) - Final Stool Occult Blood Positive Laboratory Tests Past 24 Hrs 06/25/18 21:00 Blood Type A POSITIVE Antibody Screen NEGATIVE Crossmatch See Detail POC Glucose 06/26/18 00:39 POC Glucose 121 H Medical Necessity - Tobacco Use Smoking Status: Current every day smoker Assessment/Plan All Active Problems Anemia (Acute) Will initiate bowel prep today and hopefully will be able to schedule EGD/cscope for tomorrow Will check venous duplex to see if ongoing anticoagulation is required Pt needs to mobilize
[2018-06-26] MEDS: Furosemide 40 MG Tablet PO ×3 (06:07→23:17)
[2018-06-26] MEDS: Levothyroxine 75 MCG Tablet PO (06:07)
[2018-06-26] MEDS: traMADol 50 MG Tablet PO (06:07)
[2018-06-26 06:50] LABS: Bedside Glucose 141 mg/dL (70-110)
[2018-06-26] MEDS: Budesonide Respules 0.5 MG/2 ML AMPUL.NEB. INHALATION ×2 (07:12→19:15)
[2018-06-26] MEDS: Ipratropium/Albuterol Sulfate 3 ML AMPUL.NEB INHALATION ×3 (07:12→19:15)
[2018-06-26] MEDS: Tolterodine Tartrate 2 MG CAP.SA PO (09:16)
[2018-06-26] MEDS: Carvedilol 3.125 MG TABLET PO ×2 (09:16→23:18)
[2018-06-26] MEDS: Atorvastatin Calcium 40 MG Tablet PO ×2 (09:16→23:18)
[2018-06-26] MEDS: Magnesium Oxide 400 MG Tablet PO (09:16)
[2018-06-26] MEDS: Pantoprazole Sodium 40 MG Tablet PO ×2 (09:18→23:18)
[2018-06-26] MEDS: Lisinopril 10 MG Tablet PO (09:19)
[2018-06-26 09:57] LABS: International Normalized Ratio 3.2
[2018-06-26 09:58] LABS: Absolute Lymphocyte Count 1.59 X10^3/ul (0.83-4.51); Absolute Neutrophil Count 5.7 X10^3/uL (2.0-7.7); Basophil# 0.05 X10^3/uL; Basophil% 0.6 % (0-1); Eosinophil# 0.15 X10^3/uL; Eosinophils% 1.8 % (0-5); Hematocrit 24.9 % (37-47); Hemoglobin 7.3 g/dl (12.0-15.0); Lymphocyte # 1.59 X10^3/ul (4.0); Lymphocyte % 18.6 % (19-41); Mean Corp Hgb Conc 29.3 g/gl (32-36); Mean Corpuscular Hgb 19.5 pg (27.0-32.0); Mean Corpuscular Volume 66.4 fL (81-99); Monocyte# 0.98 X10^3/uL; Monocyte% 11.5 % (0-10); Neutrophil # 5.74 X10^3/uL (2.7-7.7); Partial Thromboplast Time 43.9 Seconds (24.1-36.2); Platelet Count 167 K/mm3 (150-450); RBC Distribution Width CV 24.8 % (11.6-14.6); Red Blood Count 3.75 M/mm3 (4.2-5.4); White Blood Count 8.6 K/mm3 (4.4-11.0)
[2018-06-26 09:59] LABS: Differential Indicated SCAN CRITERIA MET; POSITIVE COUNT NO; POSITIVE DIFFERENTIAL NO; POSITIVE MORPHOLOGY YES
[2018-06-26 10:03] LABS: Anion Gap 5 (5-15); BUN 27 mg/dL (7-18); BUN/Creat Ratio 21.1 RATIO (10-20); Calcium,Total 7.9 mg/dL (8.5-10.1); Chloride 103 mmol/L (98-107); Creatinine, Serum 1.28 mg/dL (0.55-1.02); EST Glomerular Filtration Rate 44 mL/min (>60); Est Glom Filt Rate - Afr Amer 53 mL/min (>60); Estimated Creatinine Clearance 30.86 ml/min; Glucose 133 mg/dL (74-106); Potassium 3.9 mmol/L (3.5-5.1); Sodium Level 138 mmol/L (136-145)
[2018-06-26 10:11] LABS: Iron 36 ug/dL (50-170); Iron Binding Capacity,Total 432 ug/dL (250-450); PERCENT IRON SATURATION 8.3 % (15.0-55.0)
[2018-06-26 10:12] LABS: AST(SGOT) 24 U/L (15-37); Alanine Aminotransfer ALT/SGPT 19 U/L (13-56); Alkaline Phosphatase 64 U/L (45-117); Bilirubin, Direct 0.39 mg/dL (0.00-0.30); Globulin 3.4 g/dL (2.2-4.2); Protein, Total 6.4 g/dL (6.4-8.2); Thyroid Stim Hormone (TSH) 0.71 uIU/mL (0.358-3.74)
[2018-06-26 10:19] LABS: Hemoglobin A1c 6.2 % (4.2-6.3)
[2018-06-26 10:22] LABS: Anisocytosis 2+; Platelet Estimate ADEQUATE (ADEQ)
[2018-06-26 10:23] LABS: Hypochromasia 3+; Microcytosis 3+; NRBC Flagged by Analyzer 1.2 % (0-5); Polychromasia RARE; Schistocytes RARE; Target Cells 1+
[2018-06-26 10:24] LABS: Absolute Nucleated RBC Count 0.11 10^3/uL (0-5)
--- NOTE | 2018-06-26 11:05 | CASEMGMT ---
[facility] Face to Face with patient for initial transition planning/care coordination assessment. [facility] introduced self and role at [facility]. Patient lying in bed, alert and oriented. Patient willing to participate in assessment and is able to answer all questions appropriately. Care providers, pharmacy, and demographics verified. Patient wishes to discharge home, denies need for home health at this time. Patient states he has no further needs or concerns at this time. CM to follow for discharge planning needs that may arise. PCP: Coleman Specialists: migel Lozano doctor in [place] Preferred Pharmacy: [facility] Insurance: [employer] Prescription Benefit: yes Living Will/HPOA: yes mother Madison Montesinos LNOK: ex , mother Living Arrangements: Patient lives with ex in 3 story home, patient stays on 1st floor, 3 steps to enter and railing. Transportation: self/mother DME/HHC: Patient has shower chair, electric scooter, BSC, cane, walker, rollator, hospital bed, nebulizer, and home oxygen through [facility] at 2lpm. Patient states she has HHC with [facility], but when called patient is not current. [facility] will follow-up with patient Disposition Plan: Patient to discharge home with family support and follow-up plans in place. Marcy AN, RN, CM
[2018-06-26 11:20] LABS: Bedside Glucose 177 mg/dL (70-110)
[2018-06-26] MEDS: Electrolyte Solution/Peg's 4000 ML PO (11:20)
[2018-06-26] MEDS: Insulin Lispro 100 UNIT/ML INSULN.PEN SQ (11:24)
--- NOTE | 2018-06-26 14:03 | PCM.PN.BLA ---
Progress Note Pt is resistent to taking oral bowel prep and may need ngt to facilitate
--- NOTE | 2018-06-26 14:49 | PCM.PN.HOSP ---
Patient Problems: Active and Suspected Problems Anemia (Acute) Acute blood loss anemia (Acute) Subjective: Denies any hematochezia/melena. Vitals/I&O's: Vital Signs Temp Pulse Resp BP Pulse Ox 36.6 C 75 16 190/84 H 98 06/26/18 14:16 06/26/18 14:16 06/26/18 14:16 06/26/18 14:16 06/26/18 14:16 Oxygen Flow Rate (L/min) 2 Oxygen Delivery Method Nasal Cannula Weight: 107.6 kg Body Mass Index (BMI) 44.6 Intake and Output for Last 24 Hours 06/24/18 06/25/18 06/26/18 23:59 23:59 23:59 Intake Total 0 / 0 1524 / 1524 Output Total 300 / 300 Balance 0 / 0 1224 / 1224 General: Alert, No apparent distress HEENT: Atraumatic, Normocephalic Oral: Moist Mucosa, No Gingival or Mucosal Lesions/ Ulcerations Neck: No Nodes, Thyroid Normal Size and Texture Lungs: Clear to auscultation, Normal air movement, No rhonchi, No wheeze Cardiovascular: Regular rate, Regular Rhythm, Normal S1, Normal S2, No murmurs Abdomen: Bowel Sounds Present, Soft, Non Tender, Non-Distended, No Hepato-splenomegaly Extremities: No edema, No Calf Tenderness Psych/Mental Status: Normal Affect, Appropriate Microbiology Past 72 Hours 06/25/18 21:05 Stool Stool Occult Blood (ILIANA) - Final Occult Blood Positive Laboratory Results 06/25/18 21:00: Blood Type A POSITIVE, Antibody Screen NEGATIVE, Crossmatch See Detail 06/26/18 00:39: POC Glucose 121 H 06/26/18 06:02: POC Glucose 141 H 06/26/18 09:35: Sodium 138, Potassium 3.9, Chloride 103, Carbon Dioxide 30.0, Anion Gap 5, BUN 27 H, Creatinine 1.28 H, Estim Creat Clear Calc 30.86, Est GFR (MDRD) Af Amer 53 L, Est GFR (MDRD) Non-Af 44 L, BUN/Creatinine Ratio 21.1 H, Glucose 133 H, Calcium 7.9 L 06/26/18 09:35: Iron 36 L, TIBC 432, Iron Saturation 8.3 L 06/26/18 09:35: WBC 8.6, RBC 3.75 L, Hgb 7.3 L, Hct 24.9 L, MCV 66.4 L, MCH 19.5 L, MCHC 29.3 L, RDW 24.8 H, RDW Differential 59.0 H, Plt Count 167, MPV TNP, Immature Gran % (Auto) 0.500, Neut % (Auto) 67.0, Lymph % (Auto) 18.6 L, [place] % (Auto) 11.5 H, Eos % (Auto) 1.8, Baso % (Auto) 0.6, Absolute Neuts (auto) 5.7, Absolute Lymphs (auto) 1.59, Total Counted Not Reportable, Nucleated RBC % 1.2, Diff Path Review June, Platelet Estimate ADEQUATE, Polychromasia RARE, Hypochromasia 3+, Anisocytosis 2+, Microcytosis 3+, Target Cells 1+, Schistocytes RARE, Absolute Retic 0.11 06/26/18 09:35: PT 33.0 H, INR 3.2, APTT 43.9 H 06/26/18 09:35: Total Bilirubin 0.90, Direct Bilirubin 0.39 H, AST 24, ALT 19, Alkaline Phosphatase 64, Total Protein 6.4, Albumin 3.0 L, Globulin 3.4, TSH 0.71 06/26/18 09:35: Hemoglobin A1c 6.2 06/26/18 11:06: POC Glucose 177 H Current Medications Acetaminophen (Tylenol) 650 mg PO Q6H PRN PRN PRN Reason: Mild Pain (1-3)/Temp > 100.7 F Hydrocodone Bitart/Acetaminophen ([place] 5mg-325mg) 1 tablet PO Q6H PRN PRN PRN Reason: PAIN Albuterol Sulfate (Ventolin Aerosols) 2.5 mg INHALATION Q2H PRN PRN PRN Reason: SOB &/OR WHEEZING Albuterol/Ipratropium (Duoneb) 3 ml INHALATION Q6HWA.RT [facility] Last Admin: 06/26/18 13:44 Dose: 3 ml Alprazolam (Xanax) 0.5 mg PO BID PRN PRN Reason: ANXIETY Artificial Tears (Tears Naturale, Artificial Tears) 1 drop EACH EYE DAILY [facility] Last Admin: 06/26/18 09:19 Dose: 1 drop Atorvastatin Calcium (Lipitor) 40 mg PO BID [facility] Last Admin: 06/26/18 09:16 Dose: 40 mg Budesonide (Pulmicort Aerosol) 0.5 mg INHALATION Q12H.RT [facility] Last Admin: 06/26/18 07:12 Dose: 0.5 mg Carvedilol (Coreg) 3.125 mg PO BID [facility] Last Admin: 06/26/18 09:16 Dose: 3.125 mg Cholecalciferol (Vitamin D) 5,000 unit PO DAILY [facility] Last Admin: 06/26/18 09:19 Dose: 5,000 unit Dextrose (D50w Syringe) 0 gm IV X1 PRN; Protocol PRN Reason: Hypoglycemia Erythromycin () 1 gm EACH EYE QHS [facility] Fluticasone Propionate (Flonase Nasal [place]) 1 spray NASAL DAILY PRN PRN Reason: NASAL CONGESTION Furosemide (Lasix) 40 mg PO TID [facility] Last Admin: 06/26/18 13:54 Dose: 40 mg Glucagon () 1 mg IM .X1 PRN PRN Reason: Hypoglycemia Hydralazine HCl (Apresoline Iv) 5 mg IV Q4H PRN PRN PRN Reason: SBP GREATER THAN 170 Last Admin: 06/26/18 11:20 Dose: 5 mg Sodium Chloride () 250 mls @ 15 mls/hr IV .[id number] PRN PRN Reason: SALINE FLUSH Insulin Glargine (Lantus (Bkc)) 13 units SC QHS [facility] Insulin Human Lispro (Humalog Kwikpen (Bkc)) 0 unit SQ ACHS [facility]; Protocol Last Admin: 06/26/18 11:24 Dose: 1 u Levothyroxine Sodium (Synthroid) 75 mcg PO DAILY@0600 [facility] Last Admin: 06/26/18 06:07 Dose: 75 mcg Lisinopril (Zestril) 10 mg PO DAILY [facility] Last Admin: 06/26/18 09:19 Dose: 10 mg Magnesium Oxide (Mag-Ox 400) 400 mg PO DAILY [facility] Last Admin: 06/26/18 09:16 Dose: 400 mg Nicotine (Nicoderm Cq (Pbkc)) 14 mg TRANSDERM. DAILY [facility] Last Admin: 06/26/18 09:17 Dose: 14 mg Non-Formulary Medication (Fluorometholone [Fluorometholone]) 1 drop EACH EYE BID [facility] Pantoprazole Sodium (Protonix) 40 mg PO BID [facility] Last Admin: 06/26/18 09:18 Dose: 40 mg Sodium Chloride () 5 - 15 ml IV UD PRN PRN Reason: SALINE FLUSH Last Admin: 06/26/18 07:02 Dose: 10 ml Tolterodine Tartrate (Detrol La) 2 mg PO DAILY [facility] Last Admin: 06/26/18 09:16 Dose: 2 mg Tramadol HCl (Ultram) 50 mg PO TID PRN PRN Reason: MODERATE PAIN (4-5/10) Medical Necessity - Tobacco Use Smoking Status: Current every day smoker Assessment/Plan All Active Problems Anemia (Acute) Acute blood loss anemia (Acute) 1. Acute blood loss anemia improved after 1 unit monitor 2. GI bleed plan for EGD/colonoscopy 06/27 not tolerating/taking prep 3. VTE: + right soleal vein DVT on 10/28/17 Xarelto held given above. If only 1 DVT, treatment should have been completed in January. 4. HTN accelerated on lisinopril 10mg add amlodipine 5mg/day PRN clonidine 5. VTE proph: SCDs Code Visit Inpatient E&M: 41699 Subs Hosp L2
--- NOTE | 2018-06-26 15:01 | PN_ITS ---
Patient Problems: Active and Suspected Problems Anemia (Acute) Acute blood loss anemia (Acute) Subjective: Denies any hematochezia/melena. Vitals/I&O's: Vital Signs Temp Pulse Resp BP Pulse Ox 36.6 C 75 16 190/84 H 98 06/26/18 14:16 06/26/18 14:16 06/26/18 14:16 06/26/18 14:16 06/26/18 14:16 Oxygen Flow Rate (L/min) 2 Oxygen Delivery Method Nasal Cannula Weight: 107.6 kg Body Mass Index (BMI) 44.6 Intake and Output for Last 24 Hours 06/24/18 06/25/18 06/26/18 23:59 23:59 23:59 Intake Total 0 / 0 1524 / 1524 Output Total 300 / 300 Balance 0 / 0 1224 / 1224 General: Alert, No apparent distress HEENT: Atraumatic, Normocephalic Oral: Moist Mucosa, No Gingival or Mucosal Lesions/ Ulcerations Neck: No Nodes, Thyroid Normal Size and Texture Lungs: Clear to auscultation, Normal air movement, No rhonchi, No wheeze Cardiovascular: Regular rate, Regular Rhythm, Normal S1, Normal S2, No murmurs Abdomen: Bowel Sounds Present, Soft, Non Tender, Non-Distended, No Hepato- splenomegaly Extremities: No edema, No Calf Tenderness Psych/Mental Status: Normal Affect, Appropriate Microbiology Past 72 Hours 06/25/18 21:05 Stool Stool Occult Blood (ILIANA) - Final Occult Blood Positive Laboratory Results 06/25/18 21:00: Blood Type A POSITIVE, Antibody Screen NEGATIVE, Crossmatch See Detail 06/26/18 00:39: POC Glucose 121 H 06/26/18 06:02: POC Glucose 141 H 06/26/18 09:35: Sodium 138, Potassium 3.9, Chloride 103, Carbon Dioxide 30.0, Anion Gap 5, BUN 27 H, Creatinine 1.28 H, Estim Creat Clear Calc 30.86, Est GFR (MDRD) Af Amer 53 L, Est GFR (MDRD) Non-Af 44 L, BUN/Creatinine Ratio 21.1 H, Glucose 133 H, Calcium 7.9 L 06/26/18 09:35: Iron 36 L, TIBC 432, Iron Saturation 8.3 L 06/26/18 09:35: WBC 8.6, RBC 3.75 L, Hgb 7.3 L, Hct 24.9 L, MCV 66.4 L, MCH 19.5 L, MCHC 29.3 L, RDW 24.8 H, RDW Differential 59.0 H, Plt Count 167, MPV TNP, Immature Gran % (Auto) 0.500, Neut % (Auto) 67.0, Lymph % (Auto) 18.6 L, [place] % (Auto) 11.5 H, Eos % (Auto) 1.8, Baso % (Auto) 0.6, Absolute Neuts (auto) 5.7, Absolute Lymphs (auto) 1.59, Total Counted Not Reportable, Nucleated RBC % 1.2, Diff Path Review June, Platelet Estimate ADEQUATE, Polychromasia RARE, Hypochromasia 3+, Anisocytosis 2+, Microcytosis 3+, Target Cells 1+, Schistocytes RARE, Absolute Retic 0.11 06/26/18 09:35: PT 33.0 H, INR 3.2, APTT 43.9 H 06/26/18 09:35: Total Bilirubin 0.90, Direct Bilirubin 0.39 H, AST 24, ALT 19, Alkaline Phosphatase 64, Total Protein 6.4, Albumin 3.0 L, Globulin 3.4, TSH 0.71 06/26/18 09:35: Hemoglobin A1c 6.2 06/26/18 11:06: POC Glucose 177 H Current Medications Acetaminophen (Tylenol) 650 mg PO Q6H PRN PRN PRN Reason: Mild Pain (1-3)/Temp > 100.7 F Hydrocodone Bitart/Acetaminophen ([place] 5mg-325mg) 1 tablet PO Q6H PRN PRN PRN Reason: PAIN Albuterol Sulfate (Ventolin Aerosols) 2.5 mg INHALATION Q2H PRN PRN PRN Reason: SOB &/OR WHEEZING Albuterol/Ipratropium (Duoneb) 3 ml INHALATION Q6HWA.RT [facility] Last Admin: 06/26/18 13:44 Dose: 3 ml Alprazolam (Xanax) 0.5 mg PO BID PRN PRN Reason: ANXIETY Artificial Tears (Tears Naturale, Artificial Tears) 1 drop EACH EYE DAILY [facility] Last Admin: 06/26/18 09:19 Dose: 1 drop Atorvastatin Calcium (Lipitor) 40 mg PO BID [facility] Last Admin: 06/26/18 09:16 Dose: 40 mg Budesonide (Pulmicort Aerosol) 0.5 mg INHALATION Q12H.RT [facility] Last Admin: 06/26/18 07:12 Dose: 0.5 mg Carvedilol (Coreg) 3.125 mg PO BID [facility] Last Admin: 06/26/18 09:16 Dose: 3.125 mg Cholecalciferol (Vitamin D) 5,000 unit PO DAILY [facility] Last Admin: 06/26/18 09:19 Dose: 5,000 unit Dextrose (D50w Syringe) 0 gm IV X1 PRN; Protocol PRN Reason: Hypoglycemia Erythromycin () 1 gm EACH EYE QHS [facility] Fluticasone Propionate (Flonase Nasal [place]) 1 spray NASAL DAILY PRN PRN Reason: NASAL CONGESTION Furosemide (Lasix) 40 mg PO TID [facility] Last Admin: 06/26/18 13:54 Dose: 40 mg Glucagon () 1 mg IM .X1 PRN PRN Reason: Hypoglycemia Hydralazine HCl (Apresoline Iv) 5 mg IV Q4H PRN PRN PRN Reason: SBP GREATER THAN 170 Last Admin: 06/26/18 11:20 Dose: 5 mg Sodium Chloride () 250 mls @ 15 mls/hr IV .[id number] PRN PRN Reason: SALINE FLUSH Insulin Glargine (Lantus (Bkc)) 13 units SC QHS [facility] Insulin Human Lispro (Humalog Kwikpen (Bkc)) 0 unit SQ ACHS [facility]; Protocol Last Admin: 06/26/18 11:24 Dose: 1 u Levothyroxine Sodium (Synthroid) 75 mcg PO DAILY@0600 [facility] Last Admin: 06/26/18 06:07 Dose: 75 mcg Lisinopril (Zestril) 10 mg PO DAILY [facility] Last Admin: 06/26/18 09:19 Dose: 10 mg Magnesium Oxide (Mag-Ox 400) 400 mg PO DAILY [facility] Last Admin: 06/26/18 09:16 Dose: 400 mg Nicotine (Nicoderm Cq (Pbkc)) 14 mg TRANSDERM. DAILY [facility] Last Admin: 06/26/18 09:17 Dose: 14 mg Non-Formulary Medication (Fluorometholone [Fluorometholone]) 1 drop EACH EYE BID [facility] Pantoprazole Sodium (Protonix) 40 mg PO BID [facility] Last Admin: 06/26/18 09:18 Dose: 40 mg Sodium Chloride () 5 - 15 ml IV UD PRN PRN Reason: SALINE FLUSH Last Admin: 06/26/18 07:02 Dose: 10 ml Tolterodine Tartrate (Detrol La) 2 mg PO DAILY [facility] Last Admin: 06/26/18 09:16 Dose: 2 mg Tramadol HCl (Ultram) 50 mg PO TID PRN PRN Reason: MODERATE PAIN (4-5/10) Medical Necessity - Tobacco Use Smoking Status: Current every day smoker Assessment/Plan All Active Problems Anemia (Acute) Acute blood loss anemia (Acute) 1. Acute blood loss anemia * improved after 1 unit * monitor 2. GI bleed * plan for EGD/colonoscopy 06/27 * not tolerating/taking prep 3. VTE: * + right soleal vein DVT on 10/28/17 * Xarelto held given above. If only 1 DVT, treatment should have been completed in January. 4. HTN * accelerated * on lisinopril 10mg * add amlodipine 5mg/day * PRN clonidine 5. VTE proph: SCDs Code Visit Inpatient E&M: 10142 Subs Hosp L2
[2018-06-26] MEDS: Ondansetron 4 MG/2 ML Vial IV (15:44)
[2018-06-26] MEDS: amLODIPine 5 MG Tablet PO (15:47)
[2018-06-26 16:05] LABS: Bedside Glucose 130 mg/dL (70-110)
[2018-06-26] MEDS: Bisacodyl 5 MG Tablet 20 MG PO (16:28)
[2018-06-26 20:25] LABS: Bedside Glucose 141 mg/dL (70-110)
[2018-06-26] MEDS: ALPRAZolam 0.5 MG Tablet PO (23:24)
[2018-06-26] MEDS: HYDROcodone Bitartrate/Apap 5/325 Tablet PO (23:34)
[2018-06-26] MEDS: Nystatin Powder 15gm Bottle 1 APPLIC TOPICAL (23:37)
[2018-06-27] VITALS (11 sets, daily range): BP systolic 128–151; BP diastolic 45–79; PULSE 70–84; RESP 16–20; TEMP 36.3–37.1; O2SAT 92–98; BMI 45.2
--- NOTE | 2018-06-27 | IMM_PTH ---
PATIENT: NIGEL AKINS LOC: MS3 U#:[id number] AGE/SX: 68/F [place] [facility] [place]: Dr. Derrek Acosta DO : 1950 BED: 1 DIS: 06/27/2018 SPEC #: [id number] RECD: 06/30/18 14:26 STATUS: TAY REQ #: [id number] MICHAEL: 06/27/18 00:[address]: Blair Guardado DEPT: IMMUNOHISTOCHEMISTRY RECD BY: Kelly Gonzales ENTERED: 06/30/18 14:27 SP TYPE: IMMUNO OTHR DR: DO Dr. Petar Najera MD Dr. Lisa Malys, DO Tissues: A - Stomach, NOS Procedures: H Pylori (initial) PHYSICIAN & INSTITUTION [place] [id number] SPECIMEN INFORMATION: Tissue Source: A - Body of stomach biopsy Clinical Info: Blood in stool Specimen Number: [id number] CPT code: 42018 METHODOLOGY: Deparaffinized sections of prefer/formalin-fixed tissue or PAP/DQ stained slides are incubated with monoclonal/polyclonal antibodies/oligonucleotide probes. Localization is made via biotin free immunoperoxidase method. Appropriate controls are performed and reacted as expected. Results on target cell population are indicated in the following table: RESULTS: ANTIBODY / CLONE RESULT H Pylori (polyclonal) negative These tests were developed and their performance characteristics determined by [facility]. They may not have been cleared or approved by the [place].S. Food and Drug Administration. The FDA has determined that such clearance or approval is not necessary. INTERPRETATION: A. Body of stomach, biopsy: Negative for Helicobacter pylori organisms. AM:pj 07/01/18
--- NOTE | 2018-06-27 | EGD_PTH ---
PATIENT: NIGEL AKINS LOC: MS3 U#:[id number] AGE/SX: 68/F ROOM: [facility] [place] RE06/25/[address]: Dr. Derrek Acosta DO : 1950 BED: 1 DIS: 06/27/2018 SPEC #: [id number] RECD: 06/27/18 12:40 STATUS: TAY REQ #: [id number] MICHAEL: 06/27/18 00:[address]: Blair Guardado DEPT: SURGICAL PATHOLOGY RECD BY: Indio Valles ENTERED: 06/27/18 12:41 SP TYPE: EGD BIOPSY OTHR DR: DO Dr. Petar Najera MD Dr. Lisa Malys, DO Dr. Robert D Cebul, MD Tissues: A - Stomach, NOS B - Esophagus, NOS Procedures: Surgery Specimen Level IV Comments: @ Ordering doctor for SUIV edited from to @ by TAN at 06/30/18 0751 @ Submitting doctor edited from to @ by TAN at 06/30/18 0751 HEADER OPERATION: Colonoscopy, EGD ([facility] [place]) PRE-OP DIAGNOSIS: Blood in stools TISSUE SUBMITTED: A - Body of stomach biopsy, B - Distal esophagus biopsy MICROSCOPIC DIAGNOSIS A. Body of stomach, biopsy: Mild chronic gastritis. See comment. B. Distal esophagus, biopsy: Fragments of benign squamous mucosa. No evidence of inflammation. AM:pj 06/30/18 COMMENT A. The results of immunohistochemistry for Helicobacter pylori will be reported separately ([id number]). MICROSCOPIC DESCRIPTION Slides are reviewed. GROSS DESCRIPTION A - Received in fixative is one container labeled with the patient's name and designated body of stomach biopsy. The specimen consists of one irregular fragment of light pruett soft tissue that measures 0.3 x 0.1 x 0.1 cm. The specimen is totally submitted in one cassette. B - Received in fixative is one container labeled with the patient's name and designated distal esophagus biopsy. The specimen consists of one irregular fragment of light pruett soft tissue that measures 0.2 x 0.1 x 0.1 cm. The specimen is totally submitted in one cassette. / CHAPIS:pj 06/27/18 TC:3 CPT: 76429 x2
[2018-06-27 00:10] LABS: Bedside Glucose 148 mg/dL (70-110)
--- NOTE | 2018-06-27 04:30 | EKG12_ITS ---
Test Reason : AM EKG Blood Pressure : / mmHG Vent. Rate : 091 BPM Atrial Rate : 091 BPM P-R Int : 144 ms QRS Dur : 088 ms QT Int : 376 ms P-R-T Axes : -20 102 029 degrees QTc Int : 462 ms Normal sinus rhythm Low voltage QRS Borderline ECG When compared with ECG of 08-JUL-2016 09:58, Questionable change in QRS axis T wave amplitude has decreased in Anterior leads Confirmed by JOSI OBRIEN, ANNA ([id number]), industrial editor CONCHIS MORA ([id number]) on 07/01/2018 11:22:56 AM Referred By: Petar Lugo Confirmed By:ANNA PRATER MD
[2018-06-27 05:33] LABS: Basophil# 0.04 X10^3/uL; Basophil% 0.5 % (0-1); Eosinophil# 0.12 X10^3/uL; Eosinophils% 1.4 % (0-5); Hematocrit 24.7 % (37-47); Hemoglobin 7.2 g/dl (12.0-15.0); Lymphocyte % 27.2 % (19-41); Mean Corp Hgb Conc 29.1 g/gl (32-36); Mean Corpuscular Hgb 19.2 pg (27.0-32.0); Mean Corpuscular Volume 65.9 fL (81-99); Monocyte# 0.95 X10^3/uL; Monocyte% 11.2 % (0-10); Neutrophil # 5.03 X10^3/uL (2.7-7.7); Neutrophil % 59.3 % (47-70); Platelet Count 151 K/mm3 (150-450); RBC Distribution Width CV 25.4 % (11.6-14.6); RBC Distribution Width SD 59.8 fl (35.1-43.9); Red Blood Count 3.75 M/mm3 (4.2-5.4); White Blood Count 8.5 K/mm3 (4.4-11.0)
[2018-06-27 05:37] LABS: International Normalized Ratio 1.8
--- NOTE | 2018-06-27 05:40 | NURSING ---
Pt assisted to BSC. Stool clear yellow. Returned to bed and transported to via bed for endoscopy procedures.
[2018-06-27 05:43] LABS: Differential Indicated SCAN CRITERIA MET; POSITIVE COUNT NO; POSITIVE DIFFERENTIAL NO; POSITIVE MORPHOLOGY YES
[2018-06-27 05:56] LABS: BUN 22 mg/dL (7-18); BUN/Creat Ratio 19.3 RATIO (10-20); Calcium,Total 7.6 mg/dL (8.5-10.1); Chloride 103 mmol/L (98-107); Creatinine, Serum 1.14 mg/dL (0.55-1.02); EST Glomerular Filtration Rate 50 mL/min (>60); Est Glom Filt Rate - Afr Amer 61 mL/min (>60); Estimated Creatinine Clearance 34.65 ml/min; Glucose 94 mg/dL (74-106); Potassium 3.5 mmol/L (3.5-5.1); Sodium Level 142 mmol/L (136-145)
[2018-06-27 05:57] LABS: Anion Gap 8 (5-15); Differential Comment SCANNED; Hypochromasia 4+; Ovalocyte RARE
[2018-06-27 05:58] LABS: Anisocytosis 3+; Macrocytosis 1+; Microcytosis 3+; Schistocytes RARE; Target Cells 3+
[2018-06-27 06:11] LABS: Bedside Glucose 106 mg/dL (70-110)
--- NOTE | 2018-06-27 07:06 | PCM.PN.BLA ---
Progress Note Gastric bypass pouch, minimal gastritis, no bleeding Diffuse diverticulosis of colon, no active bleeding Venous duplex neg for DVT Will advance to reg diet Suspect anticoagulation related mild blood loss on top of chronic iron deficiency anemia Consider re establishing iron replacement which pt states she stopped
--- NOTE | 2018-06-27 07:18 | OP.ENDO_ITS ---
06/27/2018 Roslyn Cee [address] [facility] [place] [address] Re : Upper GI endoscopy procedure for Giulia Orozco Dear Dr. Cee This procedure was performed on Wednesday, June 27, 2018. My impressions and recommendations are as follows: Impressions : - Z-line variable, 37 cm from the incisors. Biopsied. - Small hiatal hernia. - Gastric bypass with a large-sized pouch. Gastrojejunal anastomosis characterized by healthy appearing mucosa. Biopsied. No active bleeding or ulceration at gastrojejunal anastomosis Recommendations : - Return patient to [facility] for [facility] care. - Resume previous diet. - Continue present medications. - Telephone my office for pathology results in 1 week. My findings are described in the full procedure note, which is enclosed. If I can be of further assistance, please feel free to contact me at Doctor phone number(s): Work: . Sincerely, Blair Guardado MD 06/27/2018 7:18:31 AM This report has been signed electronically.
--- NOTE | 2018-06-27 07:20 | OP.ENDO_ITS ---
06/27/[address] [facility] [address] Re : Colonoscopy procedure for Giulia Orozco Dear Dr. Cee This procedure was performed on Wednesday, June 27, 2018. My impressions and recommendations are as follows: Impressions : - Hemorrhoids found on perianal exam. - Diverticulosis in the entire examined colon. - The examination was otherwise normal. - No specimens collected. Recommendations : - Return patient to [facility] for [facility] care. - Resume previous diet. - Continue present medications. - Repeat colonoscopy in 10 years for screening purposes. My findings are described in the full procedure note, which is enclosed. If I can be of further assistance, please feel free to contact me at Doctor phone number(s): Work: . Sincerely, Blair Guardado MD 06/27/2018 7:20:48 AM This report has been signed electronically.
[2018-06-27] MEDS: Furosemide 40 MG Tablet PO (08:06)
[2018-06-27] MEDS: Levothyroxine 75 MCG Tablet PO (08:06)
[2018-06-27] MEDS: Carvedilol 3.125 MG TABLET PO (09:52)
[2018-06-27] MEDS: Atorvastatin Calcium 40 MG Tablet PO (09:52)
[2018-06-27] MEDS: Tolterodine Tartrate 2 MG CAP.SA PO (09:52)
[2018-06-27] MEDS: Magnesium Oxide 400 MG Tablet PO (09:53)
[2018-06-27] MEDS: Nystatin Powder 15gm Bottle 1 APPLIC TOPICAL (09:53)
[2018-06-27] MEDS: Pantoprazole Sodium 40 MG Tablet PO (09:54)
[2018-06-27] MEDS: Lisinopril 10 MG Tablet PO (09:55)
[2018-06-27] MEDS: amLODIPine 5 MG Tablet PO (10:02)
--- NOTE | 2018-06-27 10:10 | CASEMGMT ---
[facility] in to speak with patient regarding HHC. Patient states that she does not need anything at this time. Patient clarifies that she has a CM through [facility] that she will be in touch with after she leaves that hospital. [facility] asked patient if she had portable oxygen tank with her for discharge. Patient states that she only uses it on hot days and I don't live that far away. Patient states that her mother will be picking her up. Patient denied further needs or concerns at this time.
--- NOTE | 2018-06-27 10:12 | DCINST_ITS ---
- Discharge Diagnoses Current Active Problems: Current Active and Chronic Problems Anemia (Acute) Acute blood loss anemia (Acute) You will use the following diet at home:: Calorie/Carbohydrate Controlled (specify 1200, 1400, etc) - 1800 kcal/day Your food should be the consistency of: Regular Your liquids should be the consistency of: Regular/Thin Discharge Activity: Return to Normal Activity, No Restrictions Call your doctor if you observe: Fever of 101 or Higher, Shortness of breath Allergies/Adverse Reactions: Allergies morphine Allergy (Verified 06/25/18 20:25) Anaphylaxis oxycodone Allergy (Verified 06/25/18 20:25) Swelling oxycodone HCl [From OxyContin] Allergy (Verified 06/25/18 20:25) Swelling temazepam [From Restoril] Allergy (Verified 06/25/18:) Anaphylaxis adhesive tape Adverse Reaction (Verified 06/25/18:) Other SKIN PEELS OFF WITH USE Medications to take at Discharge Albuterol Inhaler [Ventolin Hfa] 1 puff INHALATION Q4H PRN PRN 07/08/16 Atorvastatin Calcium 40 mg PO BID 07/08/16 Furosemide 40 mg PO TID 07/08/16 Lisinopril [Zestril] 10 mg PO DAILY 07/08/16 Carvedilol [Coreg] 3.125 mg PO BID 07/12/16 Fluticasone Propionate [24 Hour Allergy Relief] 1 - 2 sprays NS DAILY PRN 07/12/16 Insulin Glargine,Hum.rec.anlog [Basaglar Kwikpen U-100] 13 unit SQ QHS 07/12/16 Insulin Lispro [Humalog KwikPen] See Protocol SQ DAILY 07/12/16 Ipratropium [Atrovent Inhaler] 1 puff INHALATION 4X/DAY PRN 07/12/16 Ondansetron [Zofran Odt] 4 mg PO 4X/DAY PRN PRN 07/12/16 Magnesium Oxide [Mag-Ox 400] 400 mg PO DAILY #30 tablet 07/14/16 Albuterol Aerosols [Ventolin Aerosols] 2.5 mg INHALATION Q6H PRN PRN 02/06/18 Cholecalciferol (Vitamin D3) [Vitamin D3] 5,000 unit PO DAILY 02/06/18 Erythromycin Base [Erythromycin] 1 applic EACH EYE QHS 02/06/18 Eye Relief 1 drop EACH EYE DAILY 02/06/18 Fluorometholone 1 drop EACH EYE BID 02/06/18 Fluticasone/Salmeterol [Advair 250-50 Diskus] 1 puff INHALATION BID 02/06/18 Hydrocodone/Acetaminophen [Hydrocodon-Acetaminophn 10-325] 1 tab PO Q6H PRN PRN 02/06/18 Levothyroxine Sodium [Synthroid] 75 mcg PO DAILY 02/06/18 Metformin HCl 500 mg PO BID 02/06/18 Omeprazole 40 mg PO BID 02/06/18 Oxybutynin Chloride [Ditropan Xl] 10 mg PO DAILY 02/06/18 Oxybutynin Chloride [Ditropan Xl] 20 mg PO DAILY 02/06/18 traMADol [Ultram] 50 mg PO TID 02/06/18 ALPRAZolam [Xanax] 0.5 mg PO BID PRN #0 06/27/18 Amlodipine [Norvasc] 5 mg PO DAILY #30 tablet 06/27/18 Ferrous Sulfate 325 mg PO 1200,1700 #60 tablet 06/27/18 The following prescriptions were given: Amlodipine [Norvasc] 5 mg PO DAILY #30 tablet Ferrous Sulfate 325 mg PO 1200,1700 #60 tablet Orders to be completed after discharge: CBC W/Diff, Automated Time Frame: 1 Week, Location: Laboratory Primary Care Physician: Roslyn Cee DO [Primary Care Provider] - Within 2 Weeks Test Results: Test results from this visit will be discussed in further detail at your follow- up appointment, if applicable. Please Follow Up With: Blair Guardado MD When: as needed. Proposed Discharge Date: 06/27/18
--- NOTE | 2018-06-27 10:12 | PCM.DC.SUM ---
Discharge Date and Diagnosis - Problem List Patient Problems: Active and Suspected Problems Anemia (Acute) Acute blood loss anemia (Acute) Date of Admission: 06/25/18 Date of Discharge: 06/27/18 - Primary Discharge Diagnosis Active and Suspected Problems Anemia (Acute) Acute blood loss anemia (Acute) 1. Acute blood loss anemia improved after 1 unit stable microcytic ferrous sulfate 325 BID outpatient CBC in 1 week. 2. GI bleed EGD negative colonoscopy showed extensive diverticulosis, but no bleeding. bleeding likely from diverticulosis + Xarelto, ASA and ibuprofen no need for Xarelto (see #3), no clear indication for ASA ([place] CVA, [place]) 3. VTE: + right soleal vein DVT on 10/28/17 due to fall. No prior history of VTE. No indication for further anticoagulation (even without anemia and heme positive stools) as she had a provoked DVT and has completed treatment (3 months is actually recommended) 4. HTN improved continue lisinopril 10mg and amlodipine 5mg/day - Secondary Discharge Diagnosis Chronic Problems JAIME (obstructive sleep apnea) (Chronic) Esophageal stricture (Chronic) Diabetes mellitus type 2 in obese (Chronic) Diverticulosis (Chronic) Chronic renal failure, stage 3 (moderate) (Chronic) HLD (hyperlipidemia) (Chronic) HTN (hypertension) (Chronic) Morbid obesity (Chronic) Nicotine dependence (Chronic) History of vertebral compression fracture (Chronic) L1 and L2, April 2016 Hypothyroidism (Chronic) COPD (chronic obstructive pulmonary disease) (Chronic) Lumbar canal stenosis (Chronic) Gastric bypass status for obesity (Chronic) Hospital Course and Treatment Imaging Results: Clinical Impression(s) from Imaging Studies Chest X-Ray 06/25/18 21:34 IMPRESSION: No acute cardiopulmonary findings or changes. Negative for new consolidation, focal atelectasis or a substantial pleural effusion. Electronically Signed: Vanessa Villafuerte MD at 21:55 EDT , Service support , Blair Guardado MD: general surgery. Operations: None Procedures: Colonoscopy, EGD Summary of Care Provided: The patient is a 68 year old F presents with anemia from the office. Patient had hemoglobin of 5.1. Was admitted and transfused 1 unit of blood. Patient underwent an EGD and colonoscopy on the 17th. The EGD was unremarkable and the colonoscopy was unremarkable with exception of extensive diverticulosis. No active bleeding was identified though the patient was heme positive upon presentation. Patient was on Xarelto for an isolated soleal DVT in October 2017. Patient stated that happened after she fell at a grocery store. Patient has been on Xarelto since then. Patient denies ever having history of DVT or a pulmonary emboli previously. Therefore, patient does not require further anticoagulation because she has completed the more than the 3months recommended treatment for a provoked DVT. So patient will be on ferrous sulfate 325 mg twice daily for the time being. Patient have CBC in about a week's time. [] Patient Problems: Active and Suspected Problems Anemia (Acute) Acute blood loss anemia (Acute) - Physical Exam General: Alert, No apparent distress HEENT: Atraumatic, Normocephalic Oral: Moist Mucosa, No Gingival or Mucosal Lesions/ Ulcerations Neck: No Nodes, Thyroid Normal Size and Texture Lungs: Clear to auscultation, Normal air movement, No rhonchi, No wheeze Cardiovascular: Regular rate, Regular Rhythm, Normal S1, Normal S2, No murmurs Abdomen: Bowel Sounds Present, Soft, Non Tender, Non-Distended, Obese Extremities: No Calf Tenderness, Edema Psych/Mental Status: Normal Affect, Appropriate Vital Signs Temp Pulse Resp BP Pulse Ox 36.6 C 70 18 133/45 H 98 06/27/18 07:54 06/27/18 07:54 06/27/18 07:54 06/27/18 07:54 06/27/18 07:54 Oxygen Flow Rate (L/min) 2 Oxygen Delivery Method Nasal Cannula Weight: 108.726 kg Body Mass Index (BMI) 45.2 Intake and Output for Last 24 Hours 06/25/18 06/26/18 06/27/18 23:59 23:59 23:59 Intake Total 0 / 0 1924 / 1924 1010 / 1010 Output Total 300 / 300 1200 / 1200 Balance 0 / 0 1624 / 1624 -190 / -190 Microbiology Past 72 Hours 06/25/18 21:05 Stool Occult Blood (ILIANA) - Final Stool Occult Blood Positive Laboratory Tests Past 24 Hrs 06/25/18 06/26/18 06/26/18 21:00 09:35 09:35 WBC RBC Hgb Hct MCV MCH MCHC RDW RDW Differential Plt Count Immature Gran % (Auto) Neut % (Auto) Lymph % (Auto) [place] % (Auto) Eos % (Auto) Baso % (Auto) Absolute Neuts (auto) Absolute Lymphs (auto) Total Counted Not Reportable Nucleated RBC % 1.2 Differential Comment Diff Path Review May foll Platelet Estimate ADEQUATE Polychromasia RARE Hypochromasia 3+ Anisocytosis 2+ Microcytosis 3+ Macrocytosis Target Cells 1+ Ovalocytes Schistocytes RARE Absolute Retic 0.11 PT INR Sodium Potassium Chloride Carbon Dioxide Anion Gap BUN Creatinine Estim Creat Clear Calc Est GFR (MDRD) Af Amer Est GFR (MDRD) Non-Af BUN/Creatinine Ratio Glucose Hemoglobin A1c Calcium Total Bilirubin 0.90 Direct Bilirubin 0.39 H AST 24 ALT 19 Alkaline Phosphatase 64 Total Protein 6.4 Albumin 3.0 L Globulin 3.4 TSH 0.71 Crossmatch See Detail 06/26/18 06/27/18 06/27/18 09:35 05:16 05:16 WBC 8.5 RBC 3.75 L Hgb 7.2 L Hct 24.7 L MCV 65.9 L MCH 19.2 L MCHC 29.1 L RDW 25.4 H RDW Differential 59.8 H Plt Count 151 Immature Gran % (Auto) 0.400 Neut % (Auto) 59.3 Lymph % (Auto) 27.2 [place] % (Auto) 11.2 H Eos % (Auto) 1.4 Baso % (Auto) 0.5 Absolute Neuts (auto) 5.0 Absolute Lymphs (auto) 2.30 Total Counted Not Reportable Nucleated RBC % Differential Comment SCANNED Diff Path Review Platelet Estimate Polychromasia Hypochromasia 4+ Anisocytosis 3+ Microcytosis 3+ Macrocytosis 1+ Target Cells 3+ Ovalocytes RARE Schistocytes RARE Absolute Retic PT 21.0 H INR 1.8 Sodium Potassium Chloride Carbon Dioxide Anion Gap BUN Creatinine Estim Creat Clear Calc Est GFR (MDRD) Af Amer Est GFR (MDRD) Non-Af BUN/Creatinine Ratio Glucose Hemoglobin A1c 6.2 Calcium Total Bilirubin Direct Bilirubin AST ALT Alkaline Phosphatase Total Protein Albumin Globulin TSH Crossmatch 06/27/18 05:16 WBC RBC Hgb Hct MCV MCH MCHC RDW RDW Differential Plt Count Immature Gran % (Auto) Neut % (Auto) Lymph % (Auto) [place] % (Auto) Eos % (Auto) Baso % (Auto) Absolute Neuts (auto) Absolute Lymphs (auto) Total Counted Nucleated RBC % Differential Comment Diff Path Review Platelet Estimate Polychromasia Hypochromasia Anisocytosis Microcytosis Macrocytosis Target Cells Ovalocytes Schistocytes Absolute Retic PT INR Sodium 142 Potassium 3.5 Chloride 103 Carbon Dioxide 31.0 Anion Gap 8 BUN 22 H Creatinine 1.14 H Estim Creat Clear Calc 34.65 Est GFR (MDRD) Af Amer 61 Est GFR (MDRD) Non-Af 50 L BUN/Creatinine Ratio 19.3 Glucose 94 Hemoglobin A1c Calcium 7.6 L Total Bilirubin Direct Bilirubin AST ALT Alkaline Phosphatase Total Protein Albumin Globulin TSH Crossmatch POC Glucose 06/27/18 06/26/18 06/26/18 05:03 23:13 20:20 POC Glucose 106 148 H 141 H 06/26/18 06/26/18 15:57 11:06 POC Glucose 130 H 177 H Discharge Diet: Low fat/ Low Cholesterol, 8 Cup Fluid Restriciton Discharge Activity: Return to Normal Activity, No Restrictions Call your doctor if you observe: Fever of 101 or Higher, Shortness of breath Home Medications: Medications to take at Discharge Albuterol Inhaler [Ventolin Hfa] 1 puff INHALATION Q4H PRN PRN 07/08/16 Atorvastatin Calcium 40 mg PO BID 07/08/16 Furosemide 40 mg PO TID 07/08/16 Lisinopril [Zestril] 10 mg PO DAILY 07/08/16 Carvedilol [Coreg] 3.125 mg PO BID 07/12/16 Fluticasone Propionate [24 Hour Allergy Relief] 1 - 2 sprays NS DAILY PRN 07/12/16 Insulin Glargine,Hum.rec.anlog [Basaglar Kwikpen U-100] 13 unit SQ QHS 07/12/16 Insulin Lispro [Humalog KwikPen] See Protocol SQ DAILY 07/12/16 Ipratropium [Atrovent Inhaler] 1 puff INHALATION 4X/DAY PRN 07/12/16 Ondansetron [Zofran Odt] 4 mg PO 4X/DAY PRN PRN 07/12/16 Magnesium Oxide [Mag-Ox 400] 400 mg PO DAILY #30 tablet 07/14/16 Albuterol Aerosols [Ventolin Aerosols] 2.5 mg INHALATION Q6H PRN PRN 02/06/18 Cholecalciferol (Vitamin D3) [Vitamin D3] 5,000 unit PO DAILY 02/06/18 Erythromycin Base [Erythromycin] 1 applic EACH EYE QHS 02/06/18 Eye Relief 1 drop EACH EYE DAILY 02/06/18 Fluorometholone 1 drop EACH EYE BID 02/06/18 Fluticasone/Salmeterol [Advair 250-50 Diskus] 1 puff INHALATION BID 02/06/18 Hydrocodone/Acetaminophen [Hydrocodon-Acetaminophn 10-325] 1 tab PO Q6H PRN PRN 02/06/18 Levothyroxine Sodium [Synthroid] 75 mcg PO DAILY 02/06/18 Metformin HCl 500 mg PO BID 02/06/18 Omeprazole 40 mg PO BID 02/06/18 Oxybutynin Chloride [Ditropan Xl] 10 mg PO DAILY 02/06/18 Oxybutynin Chloride [Ditropan Xl] 20 mg PO DAILY 02/06/18 traMADol [Ultram] 50 mg PO TID 02/06/18 ALPRAZolam [Xanax] 0.5 mg PO BID PRN #0 06/27/18 Amlodipine [Norvasc] 5 mg PO DAILY #30 tablet 06/27/18 Ferrous Sulfate 325 mg PO 1200,1700 #60 tablet 06/27/18 Following Prescrptions Were Given to Patient: Amlodipine [Norvasc] 5 mg PO DAILY #30 tablet Ferrous Sulfate 325 mg PO 1200,1700 #60 tablet Other Amb Orders: CBC W/Diff, Automated Time Frame: 1 Week, Location: Laboratory Primary Care Physician: Roslyn Cee DO [Primary Care Provider] - Within 2 Weeks Please Follow Up With: Blair Guardado MD When: as needed. Disposition: Home Minutes spent on discharge:: 32 Patient Condition:: Fair Medical Necessity - Tobacco Use Smoking Status: Current every day smoker Meaningful Use Info Meaningful Use Diagnoses (Choose all that apply): None applicable Code Visit Inpatient E&M: 21696 Disch Hosp
--- NOTE | 2018-06-27 10:19 | DS.PCM_ITS ---
Discharge Date and Diagnosis - Problem List Patient Problems: Active and Suspected Problems Anemia (Acute) Acute blood loss anemia (Acute) Date of Admission: 06/25/18 Date of Discharge: 06/27/18 - Primary Discharge Diagnosis Active and Suspected Problems Anemia (Acute) Acute blood loss anemia (Acute) 1. Acute blood loss anemia * improved after 1 unit * stable * microcytic * ferrous sulfate 325 BID * outpatient CBC in 1 week. 2. GI bleed * EGD negative * colonoscopy showed extensive diverticulosis, but no bleeding. * bleeding likely from diverticulosis + Xarelto, ASA and ibuprofen * no need for Xarelto (see #3), no clear indication for ASA (no CVA, [place]) 3. VTE: * + right soleal vein DVT on 10/28/17 due to fall. No prior history of VTE. * No indication for further anticoagulation (even without anemia and heme positive stools) as she had a provoked DVT and has completed treatment (3 months is actually recommended) 4. HTN * improved * continue lisinopril 10mg and amlodipine 5mg/day - Secondary Discharge Diagnosis Chronic Problems JAIME (obstructive sleep apnea) (Chronic) Esophageal stricture (Chronic) Diabetes mellitus type 2 in obese (Chronic) Diverticulosis (Chronic) Chronic renal failure, stage 3 (moderate) (Chronic) HLD (hyperlipidemia) (Chronic) HTN (hypertension) (Chronic) Morbid obesity (Chronic) Nicotine dependence (Chronic) History of vertebral compression fracture (Chronic) L1 and L2, April 2016 Hypothyroidism (Chronic) COPD (chronic obstructive pulmonary disease) (Chronic) Lumbar canal stenosis (Chronic) Gastric bypass status for obesity (Chronic) Hospital Course and Treatment Imaging Results: Clinical Impression(s) from Imaging Studies Chest X-Ray 06/25/18 21:34 IMPRESSION: No acute cardiopulmonary findings or changes. Negative for new consolidation, focal atelectasis or a substantial pleural effusion. Electronically Signed: Vanessa Villafuerte MD at 21:55 EDT , Service support , Blair Guardado MD: general surgery. Operations: None Procedures: Colonoscopy, EGD Summary of Care Provided: The patient is a 68 year old F presents with anemia from the office. Patient had hemoglobin of 5.1. Was admitted and transfused 1 unit of blood. Patient underwent an EGD and colonoscopy on the . The EGD was unremarkable and the colonoscopy was unremarkable with exception of extensive diverticulosis. No active bleeding was identified though the patient was heme positive upon presentation. Patient was on Xarelto for an isolated soleal DVT in October 2017. Patient stated that happened after she fell at a grocery store. Patient has been on Xarelto since then. Patient denies ever having history of DVT or a pulmonary emboli previously. Therefore, patient does not require further anticoagulation because she has completed the more than the 3months recommended treatment for a provoked DVT. So patient will be on ferrous sulfate 325 mg twice daily for the time being. Patient have CBC in about a week's time. [] Patient Problems: Active and Suspected Problems Anemia (Acute) Acute blood loss anemia (Acute) - Physical Exam General: Alert, No apparent distress HEENT: Atraumatic, Normocephalic Oral: Moist Mucosa, No Gingival or Mucosal Lesions/ Ulcerations Neck: No Nodes, Thyroid Normal Size and Texture Lungs: Clear to auscultation, Normal air movement, No rhonchi, No wheeze Cardiovascular: Regular rate, Regular Rhythm, Normal S1, Normal S2, No murmurs Abdomen: Bowel Sounds Present, Soft, Non Tender, Non-Distended, Obese Extremities: No Calf Tenderness, Edema Psych/Mental Status: Normal Affect, Appropriate Vital Signs Temp Pulse Resp BP Pulse Ox 36.6 C 70 18 133/45 H 98 06/27/18 07:54 06/27/18 07:54 06/27/18 07:54 06/27/18 07:54 06/27/18 07:54 Oxygen Flow Rate (L/min) 2 Oxygen Delivery Method Nasal Cannula Weight: 108.726 kg Body Mass Index (BMI) 45.2 Intake and Output for Last 24 Hours 06/25/18 06/26/18 06/27/18 23:59 23:59 23:59 Intake Total 0 / 0 1924 / 1924 1010 / 1010 Output Total 300 / 300 1200 / 1200 Balance 0 / 0 1624 / 1624 -190 / -190 Microbiology Past 72 Hours 06/25/18 21:05 Stool Occult Blood (ILIANA) - Final Stool Occult Blood Positive Laboratory Tests Past 24 Hrs 06/25/18 06/26/18 06/26/18 21:00 09:35 09:35 WBC RBC Hgb Hct MCV MCH MCHC RDW RDW Differential Plt Count Immature Gran % (Auto) Neut % (Auto) Lymph % (Auto) [place] % (Auto) Eos % (Auto) Baso % (Auto) Absolute Neuts (auto) Absolute Lymphs (auto) Total Counted Not Reportable Nucleated RBC % 1.2 Differential Comment Diff Path Review May foll Platelet Estimate ADEQUATE Polychromasia RARE Hypochromasia 3+ Anisocytosis 2+ Microcytosis 3+ Macrocytosis Target Cells 1+ Ovalocytes Schistocytes RARE Absolute Retic 0.11 PT INR Sodium Potassium Chloride Carbon Dioxide Anion Gap BUN Creatinine Estim Creat Clear Calc Est GFR (MDRD) Af Amer Est GFR (MDRD) Non-Af BUN/Creatinine Ratio Glucose Hemoglobin A1c Calcium Total Bilirubin 0.90 Direct Bilirubin 0.39 H AST 24 ALT 19 Alkaline Phosphatase 64 Total Protein 6.4 Albumin 3.0 L Globulin 3.4 TSH 0.71 Crossmatch See Detail 06/26/18 06/27/18 06/27/18 09:35 05:16 05:16 WBC 8.5 RBC 3.75 L Hgb 7.2 L Hct 24.7 L MCV 65.9 L MCH 19.2 L MCHC 29.1 L RDW 25.4 H RDW Differential 59.8 H Plt Count 151 Immature Gran % (Auto) 0.400 Neut % (Auto) 59.3 Lymph % (Auto) 27.2 [place] % (Auto) 11.2 H Eos % (Auto) 1.4 Baso % (Auto) 0.5 Absolute Neuts (auto) 5.0 Absolute Lymphs (auto) 2.30 Total Counted Not Reportable Nucleated RBC % Differential Comment SCANNED Diff Path Review Platelet Estimate Polychromasia Hypochromasia 4+ Anisocytosis 3+ Microcytosis 3+ Macrocytosis 1+ Target Cells 3+ Ovalocytes RARE Schistocytes RARE Absolute Retic PT 21.0 H INR 1.8 Sodium Potassium Chloride Carbon Dioxide Anion Gap BUN Creatinine Estim Creat Clear Calc Est GFR (MDRD) Af Amer Est GFR (MDRD) Non-Af BUN/Creatinine Ratio Glucose Hemoglobin A1c 6.2 Calcium Total Bilirubin Direct Bilirubin AST ALT Alkaline Phosphatase Total Protein Albumin Globulin TSH Crossmatch 06/27/18 05:16 WBC RBC Hgb Hct MCV MCH MCHC RDW RDW Differential Plt Count Immature Gran % (Auto) Neut % (Auto) Lymph % (Auto) [place] % (Auto) Eos % (Auto) Baso % (Auto) Absolute Neuts (auto) Absolute Lymphs (auto) Total Counted Nucleated RBC % Differential Comment Diff Path Review Platelet Estimate Polychromasia Hypochromasia Anisocytosis Microcytosis Macrocytosis Target Cells Ovalocytes Schistocytes Absolute Retic PT INR Sodium 142 Potassium 3.5 Chloride 103 Carbon Dioxide 31.0 Anion Gap 8 BUN 22 H Creatinine 1.14 H Estim Creat Clear Calc 34.65 Est GFR (MDRD) Af Amer 61 Est GFR (MDRD) Non-Af 50 L BUN/Creatinine Ratio 19.3 Glucose 94 Hemoglobin A1c Calcium 7.6 L Total Bilirubin Direct Bilirubin AST ALT Alkaline Phosphatase Total Protein Albumin Globulin TSH Crossmatch POC Glucose 06/27/18 06/26/18 06/26/18 05:03 23:13 20:20 POC Glucose 106 148 H 141 H 06/26/18 06/26/18 15:57 11:06 POC Glucose 130 H 177 H Discharge Diet: Low fat/ Low Cholesterol, 8 Cup Fluid Restriciton Discharge Activity: Return to Normal Activity, No Restrictions Call your doctor if you observe: Fever of 101 or Higher, Shortness of breath Home Medications: Medications to take at Discharge Albuterol Inhaler [Ventolin Hfa] 1 puff INHALATION Q4H PRN PRN 07/08/16 Atorvastatin Calcium 40 mg PO BID 07/08/16 Furosemide 40 mg PO TID 07/08/16 Lisinopril [Zestril] 10 mg PO DAILY 07/08/16 Carvedilol [Coreg] 3.125 mg PO BID 07/12/16 Fluticasone Propionate [24 Hour Allergy Relief] 1 - 2 sprays NS DAILY PRN 07/12/16 Insulin Glargine,Hum.rec.anlog [Basaglar Kwikpen U-100] 13 unit SQ QHS 07/12/16 Insulin Lispro [Humalog KwikPen] See Protocol SQ DAILY 07/12/16 Ipratropium [Atrovent Inhaler] 1 puff INHALATION 4X/DAY PRN 07/12/16 Ondansetron [Zofran Odt] 4 mg PO 4X/DAY PRN PRN 07/12/16 Magnesium Oxide [Mag-Ox 400] 400 mg PO DAILY #30 tablet 07/14/16 Albuterol Aerosols [Ventolin Aerosols] 2.5 mg INHALATION Q6H PRN PRN 02/06/18 Cholecalciferol (Vitamin D3) [Vitamin D3] 5,000 unit PO DAILY 02/06/18 Erythromycin Base [Erythromycin] 1 applic EACH EYE QHS 02/06/18 Eye Relief 1 drop EACH EYE DAILY 02/06/18 Fluorometholone 1 drop EACH EYE BID 02/06/18 Fluticasone/Salmeterol [Advair 250-50 Diskus] 1 puff INHALATION BID 02/06/18 Hydrocodone/Acetaminophen [Hydrocodon-Acetaminophn 10-325] 1 tab PO Q6H PRN PRN 02/06/18 Levothyroxine Sodium [Synthroid] 75 mcg PO DAILY 02/06/18 Metformin HCl 500 mg PO BID 02/06/18 Omeprazole 40 mg PO BID 02/06/18 Oxybutynin Chloride [Ditropan Xl] 10 mg PO DAILY 02/06/18 Oxybutynin Chloride [Ditropan Xl] 20 mg PO DAILY 02/06/18 traMADol [Ultram] 50 mg PO TID 02/06/18 ALPRAZolam [Xanax] 0.5 mg PO BID PRN #0 06/27/18 Amlodipine [Norvasc] 5 mg PO DAILY #30 tablet 06/27/18 Ferrous Sulfate 325 mg PO 1200,1700 #60 tablet 06/27/18 Following Prescrptions Were Given to Patient: Amlodipine [Norvasc] 5 mg PO DAILY #30 tablet Ferrous Sulfate 325 mg PO 1200,1700 #60 tablet Other Amb Orders: CBC W/Diff, Automated Time Frame: 1 Week, Location: Laboratory Primary Care Physician: Roslyn Cee DO [Primary Care Provider] - Within 2 Weeks Please Follow Up With: Blair Guardado MD When: as needed. Disposition: Home Minutes spent on discharge:: 32 Patient Condition:: Fair Medical Necessity - Tobacco Use Smoking Status: Current every day smoker Meaningful Use Info Meaningful Use Diagnoses (Choose all that apply): None applicable Code Visit Inpatient E&M: 25652 Disch Hosp
[2018-06-27 14:55] LABS: Pathologist Review Reviewed
== END 2018-06-27 11:15 | disposition home or self-care (01) | DRG 663 ==
LOC: ED 21:12 → MS3 23:25
PROVIDERS: Anesthesiology; Surgery; Admitting Provider Hospitalist; Emergency Provider Emergency Medicine; Family Provider Family Medicine; PCP Family Medicine; Referring Provider Hospitalist
PROC: 0DJD8ZZ Inspection of Lower Intestinal Tract, Via Natural or Artificial Opening Endoscopic (ICD-10-PCS; CPT 45378; principal; 2018-06-27 06:25)
DX: D62 Acute posthemorrhagic anemia (principal); G89.29 Other chronic pain; E03.9 Hypothyroidism, unspecified; K64.9 Unspecified hemorrhoids; K57.30 Diverticulosis of large intestine without perforation or abscess without bleeding; E78.5 Hyperlipidemia, unspecified; F17.210 Nicotine dependence, cigarettes, uncomplicated; K44.9 Diaphragmatic hernia without obstruction or gangrene; J44.9 Chronic obstructive pulmonary disease, unspecified; M48.061 Spinal stenosis, lumbar region without neurogenic claudication; E66.01 Morbid (severe) obesity due to excess calories; N18.3 Chronic kidney disease, stage 3 (moderate); E11.22 Type 2 diabetes mellitus with diabetic chronic kidney disease; I12.9 Hypertensive chronic kidney disease with stage 1 through stage 4 chronic kidney disease, or unspecified chronic kidney disease; K92.2 Gastrointestinal hemorrhage, unspecified; K22.2 Esophageal obstruction; G47.33 Obstructive sleep apnea (adult) (pediatric); Z99.81 Dependence on supplemental oxygen; Z68.41 Body mass index [BMI] 40.0-44.9, adult; Z98.84 Bariatric surgery status; Z79.4 Long term (current) use of insulin; Z86.718 Personal history of other venous thrombosis and embolism; Z79.01 Long term (current) use of anticoagulants
CPT/HCPCS: 36415; 71045; 80048; 80053; 80076; 82274; 82962; 83036; 83540; 83550; 83880; 84134; 84439; 84443; 84481; 85025; 85610; 85730; 86850; 86900; 86920; 86922; 88305; 88342; 93005; 93970; 94640; 97162; 97166; 97802; 99285; 99406; J7030; J7040; J7050; P9016; A4216; J2405

== ENCOUNTER 2018-06-29 17:12 | Emergency (ER) | payer MEDICAID, SELFPAY ==
[2018-06-27 05:03] VITALS: BMI 45.2
[2018-06-29 17:13] VITALS: BP 48/19; TEMP 35.9; BMI 48.5
[2018-06-29] MEDS: Atropine Sulfate 1 MG/10 ML Syringe IV (17:17)
--- NOTE | 2018-06-29 17:51 | ED.DCSUM_ITS ---
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 Family called EMS when they noticed she was not breathing. She was last seen normal an hour prior to EMS arrival, ex- who lives with her apparently thought she was sleeping according to EMS report per EMS when they arrived, there was no bystander CPR and the patient was warm so they began. CPR/ACLS. They had no response to treatment. She was discharged from the hospital 2 days ago for rectal bleeding after scopes showed no source and she is stabilized. EMS called for medical direction because she was not responding to 20 minutes of ACLS on scene, and they are supposed to discontinue ACLS if there is any bleeding although they did not see any gross bleeding, given the history. I directed them to continue ACLS and transport to the hospital if in question, which they did. - Past Medical History (1) Anemia Status: Chronic (2) COPD (chronic obstructive pulmonary disease) Status: Chronic (3) Chronic renal failure, stage 3 (moderate) Status: Chronic (4) Diabetes mellitus type 2 in obese Status: Chronic (5) Diverticulosis Status: Chronic (6) Esophageal stricture Status: Chronic (7) Gastric bypass status for obesity Status: Chronic (8) HLD (hyperlipidemia) Status: Chronic (9) HTN (hypertension) Status: Chronic (10) Hypothyroidism Status: Chronic (11) Lumbar canal stenosis Status: Chronic (12) JAIME (obstructive sleep apnea) Status: Chronic (13) Osteoporosis Status: Chronic Past Medical History - Allergies and Home Meds Allergies/Adverse Reactions: Allergies morphine Allergy (Verified 06/25/18 20:25) Anaphylaxis oxycodone Allergy (Verified 06/25/18 20:25) Swelling oxycodone HCl [From OxyContin] Allergy (Verified 06/25/18 20:25) Swelling temazepam [From Restoril] Allergy (Verified 06/25/18 20:25) Anaphylaxis adhesive tape Adverse Reaction (Verified 06/25/18 20:25) Other SKIN PEELS OFF WITH USE Primary Care Physician: Roslyn Cee DO [Primary Care Provider] - Surgical History: total knee arthroplasty, - - left knee replaced, right ankle surgery.gastric bypass Lives: Spouse/ Significant Other - ex- Smoking Status: Current every day smoker - Family History Maternal Family History: Reports: Diabetes Paternal Family History: Reports: Hypertension Review of Systems ROS: Unable to Obtain Physical Exam Vital Signs/Narrative: Vital Signs Temp BP 06/29/18 17:13 96.6 F L 48/19 L Inital Vital Signs reviewed: Yes General: Obese - morbidly, - - obtunded Head: Normocephalic, Atraumatic Eyes: - - pupils 4-5mm bilat, fixed/NR ENT: Moist mucous membranes, No rhinorrhea - or epistaxis Neck: Supple Cardiovascular: - - no spontaneous heart sounds Respiratory: CTA bilaterally - and equal w/ bagging. no spontaneous breathing effort. Abdomen: Soft, Nondistended Extremities: - - flaccid extremities x 4 Skin: Cyanosis, No Trauma Neurological: Coma Diagnostic/Tx/Re-eval - Medical Decision Making We continued manual CPR after performing an emergent bedside screening ultrasound of her heart, showing slow PEA around 10-20 bpm, with mild cardiac contractility without a palpable pulse. While performing CPR she was given a milligram of atropine IV, in addition to a vial of calcium chloride. The patient had already received a vial of sodium bicarb by EMS in addition to the 5 rounds of epinephrine. At the time of arrival in the emergency department and transferring care to us, the patient had undergone ACLS for approximately 40 minutes with unknown downtime up to 1 hour prior to that. After we circulated these medications, she again had no spontaneous pulse, and there was no change in the slow PEA. I again performed an ultrasound, she has minor contractility and it is weaker than it was at the previous ultrasound, barely moving at all. I think further efforts would be futile. We do not have cardiothoracic surgery at this hospital to place the patient on bypass. For these reasons, time of was called at 1720. Will discuss w/ PCP, who is paged, and sales planning analyst. - Critical Care Time Critical care time (excluding procedures): 30-74 minutes - 35 min, Including time spent:, Discussing w/Patient &/or Family/Filling Mixer - friend HCPOA, Performing Direct Patient Care at Bedside - including supervising ACLS ED Disposition - Plan for ED Patient: Disposition: Diagnosis: Cardiopulmonary arrest Referrals: Roslyn Cee DO [Primary Care Provider] -
--- NOTE | 2018-06-29 20:28 | ED.RN ---
[facility] CONTACTED AND INFOR[place] [facility] [place] 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
== END 2018-06-29 20:31 ==
PROVIDERS: Emergency Provider Emergency Medicine; Family Provider Family Medicine; PCP Family Medicine
DX: I46.9 Cardiac arrest, cause unspecified (principal); I12.9 Hypertensive chronic kidney disease with stage 1 through stage 4 chronic kidney disease, or unspecified chronic kidney disease; E11.22 Type 2 diabetes mellitus with diabetic chronic kidney disease; N18.3 Chronic kidney disease, stage 3 (moderate); J44.9 Chronic obstructive pulmonary disease, unspecified; D64.9 Anemia, unspecified; E78.5 Hyperlipidemia, unspecified; E03.9 Hypothyroidism, unspecified; G47.33 Obstructive sleep apnea (adult) (pediatric); M48.061 Spinal stenosis, lumbar region without neurogenic claudication; M81.0 Age-related osteoporosis without current pathological fracture; E66.9 Obesity, unspecified; Z98.84 Bariatric surgery status; Z88.5 Allergy status to narcotic agent; F17.200 Nicotine dependence, unspecified, uncomplicated; Z96.652 Presence of left artificial knee joint; Z79.4 Long term (current) use of insulin; Z79.899 Other long term (current) drug therapy
CPT/HCPCS: 92950; 96365; 96375; 99281; J7030; A4216